=== PATIENT | male | born 1985 | race Caucasian/White ===

== ENCOUNTER 2020-07-11 12:10 | Outpatient (CLI) | payer BC, SELFPAY ==
[2020-07-11 13:06] LABS: SARS-CoV-2 Ag Negative (Negative)
[2020-07-12 18:01] LABS: SARS-CoV-2 RNA PCR Negative
== END 2020-07-11 12:11 | disposition home or self-care (01) ==
LOC: CHSLAB 12:19
PROVIDERS: PCP Family Medicine; Visit Provider Family Medicine
DX: J00 Acute nasopharyngitis [common cold] (principal); Z20.828 Contact with and (suspected) exposure to other viral communicable diseases
CPT/HCPCS: 87426; 87635; C9803; U0003

== ENCOUNTER 2021-07-19 14:15 | Outpatient (CLI) | payer BC, SELFPAY ==
[2021-07-19 15:12] LABS: SARS-CoV-2 Ag Positive (Negative)
== END 2021-07-19 14:16 | disposition home or self-care (01) ==
LOC: CHSLAB 14:17
PROVIDERS: PCP Family Medicine; Visit Provider Family Medicine
DX: U07.1 COVID-19 (principal)
CPT/HCPCS: 87426; C9803

== ENCOUNTER 2024-05-22 06:49 | Outpatient (CLI) | payer BC, SELFPAY ==
--- NOTE | ~2024-05-22 | MR_ITS ---
EXAMINATION: MR brain/brain stem wo con DATE: 05/22/2024 07:37 INDICATION: Head injury. TECHNIQUE: Magnetic resonance imaging (MRI) of the brain and brainstem was performed without intraven ous contrast. COMPARISON: None. FINDINGS: There is no intracranial hemorrhage, acute infarction, or abnormal intracranial mass lesion . The ventricles are normal in size. The orbits are normal. There is mucosal thickening in the parana john sinuses. The mastoid air cells are normal. IMPRESSION: 1. Normal brain. Reviewed, dictated and finalized at location A. INDERGARTEN TEACHER IMPRESSION: 1. Normal brain.
== END 2024-05-22 06:50 | disposition home or self-care (01) ==
PROVIDERS: PCP Family Medicine; Visit Provider Nurse Practitioner Family
DX: G44.309 Post-traumatic headache, unspecified, not intractable (principal); Z87.820 Personal history of traumatic brain injury; Z87.828 Personal history of other (healed) physical injury and trauma; F43.10 Post-traumatic stress disorder, unspecified; S06.9XAS Unspecified intracranial injury with loss of consciousness status unknown, sequela
CPT/HCPCS: 70551

== ENCOUNTER 2025-01-13 16:04 | Outpatient (RCR) | payer BC, SELFPAY ==
--- NOTE | 2025-01-19 15:59 | OPREHPOC ---
Outpatient Therapy Plan of Care This is a Multidisciplinary Plan of Care that may contain components documented by all disciplines (PT, OT, and ST.) PT Problem 1 PT Problem #1 Knowledge Deficit PT Goal 1 Goal / Goal Update Pt to be independent and compliant with HEP Target Visit 4 PT Problem 2 PT Problem #2 Impaired Functional Mobility PT Goal 1 Goal / Goal Update Pt to score 25% or less on Oswestry Pt to report being able to walk 1 mile with pain no higher than 1/10 Pt to be able to lift 30# from floor to waist with no more than 1/10 pain for work duties Target Visit 12 PT Problem 3 PT Problem #3 Impaired Strength PT Goal 1 Goal / Goal Update Pt to have 5/5 lower abdominal strength pt to have 5/5 LE strength bilat Target Visit 12
--- NOTE | 2025-01-19 15:59 | PTOPEVAL1 ---
Assessment and note entered by JT File, PT Evaluation Information Assessment Status Evaluation ICD-10 Condition Codes (PT) Pain in low back M54.50 Other ICD-10 Condition Codes ( M54.42 PT) Onset 06/13/24 Subjective Information Pt reports that he has had a stitch in his back for awhile, and had tried PT before for 6 visits before life got in the way. The pain goes to his L butt into his knee. Standing and walking is most comfortable. Pt reports that he cant walk more than 1/2 a mile or lift heavy. Pt reports that he can kneel down and squat fine. pt reports that it is starting to effect work. Pt reports that nothing makes it better. Pt reports that he has been stretching his hips some. Pt reports that he takes Tylenol for it. Pt reports that he using a heating pad on his back at night. Pt reports that the hot tub helps too. Pt reports that he can't deadlift at the gym. Reported Pain Level Pain Score 5: Self Report Assessment PT Clinical Summary Alvin is a 39 y/o male who presents to skilled PT with a diagnosis of low back pain and L sided sciatica. Pts objective and subjective is consistent with L sciatica and possibly piriformis syndrome. The pt has a goal to be able to do all his work activities without modification. Pt has deficits in LE/abdominal strength, functional performance, and pain. Pt would benefit from skilled PT to work on deficits to improve functional performance to return to prior level of functioning. Plan of Care Interventions Electrical Stimulation,Hot Pack/Cold Pack,Manual Therapy,Mechanical Traction,Neuro Re-education, Patient/Caregiver Education,Therapeutic Activities ,Therapeutic Exercise PT Services Indicated Yes Treatment Frequency and 2x a week for 12 visits Duration These treatments will address the objective and functional deficits as defined above. The patient will be advanced safely and appropriately in order for the patient to progress towards his/her prior level of function. Additional exercises will be introduced and as well as a comprehensive home exercise program upon discharge, if needed, ?to ensure carryover of functional gains achieved in the clinic. This treatment plan has been reviewed and agreement upon by the patient.
--- NOTE | 2025-01-20 07:07 | PCPTNOTE ---
On 01/19/25, the student, [Sofi Olivares], provided care and completed [facility] documentation on this patient. I have reviewed the student's documentation and agree with the findings.
--- NOTE | 2025-03-31 16:54 | PCPTNOTE ---
Mr. Pacheco attended 9 skilled PT visits addressing low back pain. He last attended therapy on 02/10/2025 and took leave to attend a trip. The patient was contacted today and he has returned from the trip and reports that his lower back is feeling good after PT and he would like to be discharged. Jennifer Lebron, LALOT
== END 2025-02-10 20:00 | disposition home or self-care (01) ==
LOC: CHSPT 16:04
PROVIDERS: PCP Nurse Practitioner Family; Visit Provider Nurse Practitioner Family
DX: M54.42 Lumbago with sciatica, left side (principal)
CPT/HCPCS: 97110; 97112; 97140; 97161; 97530

== ENCOUNTER 2025-02-01 06:59 | Outpatient (CLI) | payer BC, SELFPAY ==
--- OUTSIDE RECORDS SUMMARY | 2025-02-01 07:03 | XMS_ITS ---
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 Ripsaw Operator Name Role Phone JEFFERSON PANDA Attending Unavailable Immunization Immunization Date Status Additional Notes Code Code System DTP 1986 Completed 01 CVX DTP 10/02/1987 Completed 01 CVX DTP 12/14/1987 Completed 01 CVX DTP 11/23/1990 Completed 01 CVX OPV 1986 Completed 02 CVX OPV 10/02/1987 Completed 02 CVX OPV 11/23/1990 Completed 02 CVX MMR 11/16/1987 Completed 03 CVX MMR 11/23/1990 Completed 03 CVX Hep B, adolescent or pediatric 03/04/2000 Completed 08 CVX Td (adult), 2 Lf tetanus toxoid, preservative free, adsorbed 03/04/2000 Completed 09 CVX Hep B, adult 12/02/2013 Completed 43 CVX Tdap 12/31/2013 Completed 115 CVX Influenza, split virus, trivalent, PF 04/29/2017 Completed 140 CVX Influenza, split virus, quadrivalent, PF 04/20/2015 Completed 150 CVX Influenza, split virus, quadrivalent, PF 04/01/2016 Completed 150 CVX Influenza, split virus, quadrivalent, PF 04/21/2018 Completed 150 CVX Influenza, split virus, quadrivalent, PF 04/12/2020 Completed 150 CVX Influenza, split virus, quadrivalent, PF 06/24/2022 Completed 150 CVX Influenza, split virus, quadrivalent, PF 04/07/2023 Completed 150 CVX COVID-19, mRNA, LNP-S, PF, 1 00 mcg/0.5mL dose or 50 mcg/0.25mL dose 08/11/2020 Completed 207 CVX COVID-19, mRNA, LNP-S, PF, 1 00 mcg/0.5mL dose or 50 mcg/0.25mL dose 09/08/2020 Completed 207 CVX Results ELBOW MINIMUM 3V LEFT - Comp leted: 06/03/2023 16:12 LOINC: EXAM DESCRIPTION: ELBOW MINIMUM 3V LEFT REASON FOR STUDY: LEFT POSTERIOR ELBOW PAIN NO INJURY Duration: 1 YEAR TECHNIQUE: There are 3 radiographic view(s) of the left elbow. COMPARISON: No prior. FINDINGS: Normal mineralization. No fracture or dislocation. Joint spaces are intact. No posterior fat pad sign. IMPRESSION: No acute osseous abnormality. THIS IS AN ELECTRONICALLY VERIFIED FINAL REPORT 06/04/2023 3:00 PM - Electronically signed by Luis Jacobsen M.D. MJ: KEVIN Report ID: [id number] Reading Location: [place] [address] Social History Type Status Start Date End Date Code Code Syst em Smoking History Never smoker (Never Smoked) [id number] SNOMED CT Smoking History Unknown if ever smoked [id number] Sex Male Hospital Discharge Instructions Should you have any questions prior to discharge, please contact a member of your healthcare team. If you have left the hospital and have any questions, please contact your primary care physician. Reason For Referral No Data Found Plan of Treatment MRI UE Joint WO Contrast (36127) 2021 Split Night, CPAP/BIPAP/ASV (53136) 08/2023 Encounters Encounter Diagnosis Start Date Code Code Sys tem 06/03/2023 [id number] SNOMED-CT Personal Care Team Section Performer Name Performer Role Active Date Inactive PALOMA Freeman PCP - Primary care physician 2022-06-24 2022-07-09 Alessandro Torres PCP - Primary care physician 2022-07-09 Imaging Narrative Notes
--- OUTSIDE RECORDS SUMMARY | 2025-02-01 07:03 | XMS_ITS | Clinical Summary ---
Author Organization [facility] Address [address] [place] [address] Phone Care Team Providers Care Steam Tender Name Role Phone Unavailable Primary Care Provider Unavailabl e Social History Tobacco Use Types Packs/Day Years Used Date Smoking Tobacco: Never Assessed Sex and Gender Information Value Date Recorded Sex Assigned at Not on file Legal Sex Male 9:40 AM CDT Gender Identity Not on file Sexual Orientation Not on file Plan of Treatment Health Maintenance Due Date Last Done Comments HPV VACCINES (1 - Male 3-dose series) 2001 DTAP/TDAP/TD VACCINES (1 - Tdap) 2005 HEPATITIS B VACCINES (1 of 3 - 19+ 3-dose series) 03/2005 INFLUENZA VACCINE (#1) 2025
--- OUTSIDE RECORDS SUMMARY | 2025-02-01 07:03 | XMS_ITS | Clinical Summary ---
Author Organization [facility] Address [facility] [place] [address] Care Team Providers Care Poultry Scalder Name Role Phone Ayo Downs MD Primary Care Provider [phone] Allergies No known active allergies Medications buPROPion XL 300 MG 24 hr tablet Take 300 mg by mouth nightly at bedtime. Active prazosin 1 MG capsule Take 2 mg by mouth nightly at bedtime. Active Active Problems Problem Noted Date Diagnosed Date Aftercare following surgery 03/19/2019 Resolved Problems Problem Noted Date Diagnosed Date Resolved Date Bankart lesion of left shoul melodie, initial encounter 02/03/2019 05/21/2019 Family History Medical History Relation Comments Cancer Father None Neg Hx Relation Status Comments Father Alive Mother Alive Social History Tobacco Use Types Packs/Day Years Used Date Smoking Tobacco: Never Smokeless Tobacco: Never Alcohol Use Standard Drinks/Week Comments Yes 0 (1 standard drink = 0.6 oz pur e alcohol) occasional Sex and Gender Information Value Date Recorded Sex Assigned at Not on file Legal Sex 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 Gender Identity Not on file Sexual Orientation Not on file Last Filed Vital Signs Vital Sign Reading Time Taken Comments Blood Pressure 122/79 05/26/2021 7:00 PM AUTOMATIC SPINNING LATHE OPERATOR Pulse 79 05/26/2021 4:43 PM AUTOMATIC SPINNING LATHE OPERATOR Temperature 36.4 C (97.6 F) 05/26/2021 4:43 PM AUTOMATIC SPINNING LATHE OPERATOR Respiratory Rate 16 05/26/2021 4:43 PM AUTOMATIC SPINNING LATHE OPERATOR Oxygen Saturation 100% 05/26/2021 5:15 PM AUTOMATIC SPINNING LATHE OPERATOR Inhaled Oxygen Concentration - - Weight 88.5 kg (195 lb) 05/26/2021 5:53 PM AUTOMATIC SPINNING LATHE OPERATOR Height 177.8 cm (5' 10) 05/26/2021 4:43 PM AUTOMATIC SPINNING LATHE OPERATOR Body Mass Index 27.98 05/26/2021 4:43 PM AUTOMATIC SPINNING LATHE OPERATOR Plan of Treatment Health Maintenance Due Date Last Done Comments Annual Physical 1989 Hepatitis B Vaccines (2 of 3 - 3-dose series) 04/01/2000 03/04/2000 Hepatitis C 01/20/2004 HPV Vaccines (1 - 3-dose SCDM series) 2013 DTaP, Tdap and Td Vaccines (6 - Td or Tdap) 01/01/2024 12/31/2013, 03/04/2000, 11/23/1990, Additional history exists COVID-19 Vaccine ( season) 2024 09/08/2020, 08/11/2020 Meningococcal B Vaccine Aged Out No l onger eligible based on patient's age to complete this topic Meningococcal Vaccine Aged Out No freddie guillermina eligible based on patient's age to complete this topic Pneumococcal Vaccine: Pediatrics (0 to 5 Years) and At-Risk Patients (6 to 49 Years) Aged Out No longer eligible based on patient's age to complete this topic RSV Immunizations Under 20 Months Aged Out No longer eligible based on patient's age to complete this topic Medical Devices Implanted Type Area Passenger Car Upholsterer Apprentice Device Identifier Shelf Expiration Date Model / Serial / Lot [place] Suture 3mm 2 Suturetak Fiberwire [employer] Knotless Cruciate Ligament Biocomposite 12.7mm Sterile - [id number] Implanted:Qty: 1 on 02/05/2019 by Sean Rogers MD at [facility] Left: Shoulder [employer] 09/10/2020 [id number] / / [id number] [place] Suture 3mm 2 Suturetak Fiberwire [employer] Knotless Cruciate Ligament Biocomposite 12.7mm Sterile - [id number] Implanted:Qty: 1 on 02/05/2019 by Sean Rogers MD at [facility] Left: Shoulder [employer] 06/12/2020 [id number] / / [id number] [place] Suture 3mm 2 Suturetak Fiberwire [employer] Knotless Cruciate Ligament Biocomposite 12.7mm Sterile - [id number] Implanted:Qty: 1 on 02/05/2019 by Sean Rogers MD at [facility] Left: Shoulder [employer] 09/10/2020 AR-1938BC / / [id number] [place] Suture 3mm 2 Suturetak Fiberwire [employer] Knotless Cruciate Ligament Biocomposite 12.7mm Sterile - [id number] Implanted:Qty: 1 on 02/05/2019 by Sean Rogers MD at [facility] Left: Shoulder [employer] 09/10/2020 AR-1938BC / / [id number] [place] Suture 3mm 2 Suturetak Fiberwire [employer] Knotless Cruciate Ligament Biocomposite 12.7mm Sterile - [id number] Implanted:Qty: 1 on 02/05/2019 by Sean Rogers MD at [facility] Left: Shoulder [employer] 09/10/2020 AR-1938BC / / [id number] [place] Suture 3mm 2 Suturetak Fiberwire [employer] Knotless Cruciate Ligament Biocomposite 12.7mm Sterile - [id number] Implanted:Qty: 1 on 02/05/2019 by Sean Rogers MD at [facility] Left: Shoulder [employer] 09/10/2020 AR-1938BC / / [id number] Suture [place], [employer]ivel[employer], Biocomposite 7x19.1mm - [id number] Implanted:Qty: 1 on 02/05/2019 by Sean Rogers MD at [facility] Left: Shoulder [employer] 05/13/2020 [id number] -[id number] / / [id number] Insurance [employer] Member Subscriber Plan / Payer (Ef fective 2019-Present) Name:Alvin Pacheco Relation to Subscriber:Self Name:Alvin Pacheco Payer ID:Not on file Group ID:Not on file Type:Not on file Address: [address] Care Teams Poultry Scalder Relationship Specialty Start Date End Date Ayo Downs MD [address] [place] [address] PCP - General FAMILY PRACTICE 01/31/19
--- OUTSIDE RECORDS SUMMARY | 2025-02-01 07:04 | XMS_ITS | Encounter Summary ---
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 This section includes the names of all active insurance providers for the patient. Insurance Provider Type of Coverage Plan Name Start of Policy Coverage End of Policy Coverage Group Number Member ID Insurance Provider's Telephone Number Policy Larsen's Name Patient's Relationship to Policy Larsen AN[place] HE[place]AN W/HEALTH SAVINGS ACCOUNT AMERE N Jebbit [facility] Jul 14, [id number] [phone] MAGGY ALVIN PATIENT AN[place] HEALTH PLAN W/HEALTH SAVINGS ACCOUNT AMERE N Jebbit [facility] Jul 14, [id number] [phone] ALVIN WINTER PATIENT [place] HEALTH PLAN W/HEALTH SAVINGS ACCOUNT AMERE N Jebbit [facility] Jul 14, [id number] [phone] ALVIN WINTER [place]IENT [place]ALTH PLAN W/HEALTH SAVINGS ACCOUNT AMERE N Jebbit [facility] Jul 14, [id number] [phone] ALVIN WINTER PATIENT [place] PREFERRED PROVIDER ORGANIZAT ION (PPO) AMERE N CORPO RATIO N Jul 14, 2019 [id number] [phone] ALVIN WINTER PATIENT [employer] ([id number])RX PRESCRIPT ION AMERE N RUBINA [facility] Jul 14, 2022 [id number] [phone] ALVIN WINTER PATIENT [employer] ([id number]) PRESCRIPT ION AMERE N RUBINA Jul 14, 2019 [id number] [phone] ALVIN WINTER PATIENT Selected Encounter This section includes the information on record at [place] for the Encounter. 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 Date/Time Primary/Secondary Diagnosis Diagnosis Name Provider Source May 11, 2024 05:56 PM PRIMARY Pain in right shoulder [facility] May 11, 2024 05:56 PM SECONDARY Cervicalgia [facility] May 11, 2024 05:56 PM SECONDARY Low back pain, unspecified [facility] Plan of Treatment: Future Appointments (+ 6 months) and Future Tests (+/- 45 days) The Plan of Treatment section includes future care activities for the patient from all [place] treatmentfacilities. This section includes future appointments and future orders which are active, pending or scheduled. Future Appointments This section includes appointments that were scheduled to occur 6 months from the date of the Encounter, up to a maximum of 20 appointments. The data comes from all [place] treatment facilities. Appointment Date/Time Appointment Type Appointme nt Facility Name Aug 18, 2024 08:00 AM AMBULATORY - PSYCHIATRY [facility] Lab Results: +/- 30 days of the encounter This section includes the Chemistry and Hematology Lab Results on record with [place] for the patient. Radiology Reports and Pathology Reports are provided separately, in subsequent sections. Lab Results This section contains the Chemistry/Hematology Results that were resulted 30 days before or 30 daysafter the date of the Encounter. Date/Time Source Result Type Result - Unit Interpretation Reference Range Specimen Type Comment Apr 12, 2024 12:40 PM [facility] LIPID PANEL (STL) PLASMA Specimen Type: PLASMA Comment: No hemolysis noted. Ordering Provider: KHARI COONEY Report Released Date/Time: Apr 06, 2024 03:58 PM Reporting Lab: [address] [address] Performing Lab: [address] [address] CHOLESTEROL 208 mg/dL H 0-200 TRIGLYCERIDE 246 mg/dL H 0-150 CALCULATED LDL 106 mg/dL HDL(New) 53 mg/dL >40 Apr 12, 2024 12:40 PM [facility] COMPREHENSIVE METABOLIC PANEL PLASMA Specimen Type: PLASMA Comment: No hemolysis noted. Ordering Provider: KHARI COONEY Report Released Date/Time: Apr 06, 2024 03:58 PM Reporting Lab: [address] [address] Performing Lab: [address] [address] CREATININE 1.02 mg/dL 0.7-1.3 UREA NITROGEN 18.5 mg/dL 9.0-25.0 GLUCOSE 94 mg/dL 72-99 SODIUM 141 meq/L 136-145 POTASSIUM 4.8 meq/L 3.5-5 CHLORIDE 105 meq/L 98-107 CARBON DIOXIDE 26 meq/L 22-31 CALCIUM 9.6 mg/dL 8.4-10.4 PROTEIN 7.5 g/dL 6-8.6 ALBUMIN 4.5 g/dL 3.4-5 TOTAL BILIRUBIN 0.4 mg/dL 0.2-1.2 ALKALINE PHOSPHATASE 79 U/L 40-150 AST/SGOT 17 U/L 5-34 ALT/SGPT 14 U/L 8-40 EGFR (CKD-EPI 2020) 96.5 >60 Apr 12, 2024 12:40 PM [facility] HGA1C BLOOD Specimen Type: BLOOD No comment entered. Ordering Provider: KHARI COONEY Report Released Date/Time: Apr 06, 2024 03:58 PM Reporting Lab: [address] [address] Performing Lab: [facility] [address] [address] HGA1C 5.3 4.0-6.0 Apr 12, 2024 12:40 PM [facility] CBC BLOOD Specimen Type: BLOOD No comment entered. Ordering Provider: KHARI COONEY Report Released Date/Time: Apr 06, 2024 03:58 PM Reporting Lab: [facility] [address] [address] Performing Lab: [facility] [address] [address] WBC 8.2 10*3/uL 3.6-11.2 RBC 4.76 10*6/uL 4.10-5.70 HGB 14.9 g/dL 13.1-16.8 HCT 43.6 38.2-48.4 MCV 91.6 fL 80.0-100.0 MCH 31.3 pg 27.0-34.0 MCHC 34.2 g/dL 33.0-36.0 PLT 263 10*3/uL 150-400 MPV 10.6 fL 7.5-11.2 RDW 12.3 11.8-15.1 LYMPHOCYTES, AUTO % 41 MONOCYTES, AUTO % 7 NEUTROPHILS, AUTO % 47 EOSINOPHILS, AUTO % 4 BASOPHILS, AUTO % 1 LYMPHOCYTES, ABSOLUTE 3.32 10*3/uL 0.77- 4.50 MONOCYTES, ABSOLUTE 0.58 10*3/uL 0.19-0. 80 NEUTROPHILS, ABSOLUTE 3.82 10*3/uL 2.10- 8.00 EOSINOPHILS, ABSOLUTE 0.36 10*3/uL 0.00- 0.60 BASOPHILS, ABSOLUTE 0.05 10*3/uL 0.00-0. 20 Apr 12, 2024 12:40 PM [facility] VITAMIN D, 25-HYDROXY SERUM Specime n Type: SERUM No comment entered. Ordering Provider: KHARI COONEY Report Released Date/Time: Apr 06, 2024 03:58 PM Reporting Lab: [facility] [address] [address] Performing Lab: [facility] [address] [address] VITAMIN D, 25-HYDROXY 42.6 ng/mL 30-96 Apr 12, 2024 12:40 PM [facility] TSH W/ REFLEX FT4 (STL) PLASMA Speci men Type: PLASMA No comment entered. Ordering Provider: KHARI COONEY Report Released Date/Time: Apr 06, 2024 03:58 PM Reporting Lab: [facility] [address] [address] Performing Lab: [facility] [address] [address] TSH 1.183 u[IU]/mL 0.47-5 Social History: Smoking Status (Most current) and Tobacco Use (All prior to encounter date) This section includes the most current, and the historical, smoking and tobacco- related health factors from the [place] facility where the Encounter took place. Current Smoking Status This section includes the most current smoking, or tobacco-related health factor, from the [place] facility where the Encounter took place. Date/Time Current Smoking Status Comment Facil ity Apr 06, 2024 02:30 PM VA-TOBACCO NEVER USED [facility] Tobacco Use History This section includes a history of the smoking, or tobacco-related health factors, that were collected on or before the date of the Encounter. The data comes from the [place] facility where the Encounter took place. Date/Time Smoking Status/Tobacco Use Comment F acility Apr 07, 2023 01:30 PM VA-TOBACCO FORMER USER [facility] Apr 07, 2023 01:30 PM VA-TOBACCO QUIT 1 TO < 5 YRS [facility] Apr 06, 2021 09:00 AM VA-TOBACCO FORMER USER [facility] Apr 06, 2021 09:00 AM VA-TOBACCO QUIT 1 TO < 5 YRS [facility] Apr 07, 2020 02:30 PM VA-TOBACCO NEVER USED [facility] Radiology Reports: +/- 30 days of the encounter Radiology Reports For cases when an order for radiology services may have been completed prior to the date of the Encounter, the report list includes the Radiology Reports that were completed up to 30 days before dateof the Encounter. For cases when an order for radiology services may have been completed after the date of the Encounter, the report list also includes the Radiology Reports that were completed up to30 days after date of the Encounter. The data comes from all [place] treatment facilities. Date/Time Radiology Report Provider Source Apr 12, 2024 12:31 PM SPINE LUMBOSACRAL 2 OR 3 VIEWS: ALVIN WINTER [id number] -[phone] M Exm Date: APR 12, 2024@12:31 Req Phys: KHARI COONEY Loc: [facility] PACT 5 (Req'g Loc) Img Loc: [facility] SUITE Service: [facility], [address] [place] [address] (Case [id number] COMPLETE) SPINE LUMBOSACRAL 2 OR 3 VIEWS (RAD Detailed) CPT:57947 Reason for Study: Low back pain Clinical History: Report Status: Verified Date Reported: APR 12, 2024 Date Verified: APR 12, 2024 Beef Breaker E-Sig:/ES/George Witt MD Report: FINDINGS: No significant abnormalities demonstrated in lumbar spine. Disc spaces appeared preserved throughout and vertebral alignment is satisfactory. Vertebral bodies appear intact. Sacroiliac joints and visualized renal areas appear unremarkable. No other significant finding is seen. Impression: Negative. Primary Interpreting Staff: George Witt MD, Radiologist (Beef Breaker) /QMB [facility] Encounter Notes: All associated encounter notes This section contains the clinical notes associated to the Encounter. Date/Time Encounter Note(s) Provider Source May 11, 2024 01:44 PM [facility]: LOCAL TITLE: [place] ACUPUNCTURE NOTE STANDARD TITLE: [facility] DATE OF NOTE: MAY 11, 2024@13:44 ENTRY DATE: MAY 11, 2024@13:45:01 AUTHOR: SUKHI PARHAM EXP COSIGNER: URGENCY: STATUS: COMPLETED Initial visit Overly Acupuncture/Overly Acupressure was the only treatment given. Patient was evaluated and agreed to receive Overly Acupuncture (BFA). Patient was evaluated and agreed to receive [place] Acupuncture Protocol (BFA)/Overly Acupressure (BAA) for the following pain condition(s): Comment: low back Pre BFA/BAA Numeric Pain Rating Scale of site with highest pain: number from 0-10: 2 The patient was asked the following questions: During the past 24 hours, how much has your pain interfered with your usual activity? number from 0-10: 6 During the past 24 hours, how much has your pain interfered with your usual sleep? number from 0-10: 7 During the past 24 hours, how much has the pain affected your usual mood? number from 0-10: 4 During the past 24 hours, how much has pain contributed to your stress? number from 0-10: 2 Oral Informed Consent obtained for BFA/BAA Procedure: Ear was prepped with alcohol Needle type: Semi-permanent ASP needles The following points were placed: All 10 points in both ears Complications: Patient tolerated well, without any complications. Post treatment Numeric Pain Rating Scale: number from 0-10: 1 Standard [id number] time for application of BFA/BAA protocol is 15 minutes. No electrical stimulation is used. [id number] time spent during this procedure in the delivery of BFA/BAA was 15 minutes. The patient was provided with the following post BFA instructions: -Continue normal activities and avoid over exertion for the initial 6-12 hours after a treatment. Avoid alcohol for 12 hours after treatment. -You may bathe or shower with the needles in place, but be careful not to pull the needles when cleaning or drying the ear. -If you experience new or continued redness, swelling or pain, remove the needles or return to clinic for evaluation and/or needle removal. -You may experience drowsiness, lightheadedness, or euphoria during the treatment or within 30 minutes of treatment. -Do not have an MRI scan with the needles in place (If you need to have an MRI, please remove needles prior to scan). -Continue to take all prescription medication according to your provider's instructions. -After three days, remove all needles. You may have small stud needles (ASP needles) covered by an adhesive bandage, or needles that are attached to the adhesive bandage (press tack needles). ASP needles may be removed by gripping them with your fingernails or tweezers. Rock the needles back and forth to remove. Press tack needles may be removed by peeling off the tape that holds the needle in place. -Colden must be placed in a sharps container or household container that meets sharps disposal guidelines. Household container must be: a. made of a puncture-resistant material; b. able to close with a tight-fitting, puncture resistant lid, without sharps being able to come out; c. stand upright and be stable during use; d. leak-resistant; e. properly labeled (sharps - biohazard); and f. disposed of according to community guidelines, if available. -Please keep all regularly scheduled follow-up visits. Return sooner should your condition worsen. Future visit dates/details: 05/18/24 /sherwin/ Sukhi Parham D.C. Chiropractic Physician-Fee Basis Signed: 05/11/2024 17:56 SUKHI PARHAM [facility] May 11, 2024 01:06 PM CHIROPRACTIC NOTE: LOCAL TITLE: CHIROPRACTIC [facility] F/[facility] STANDARD TITLE: CHIROPRACTIC NOTE DATE OF NOTE: MAY 11, 2024@13:06 ENTRY DATE: MAY 11, 2024@13:06:11 AUTHOR: SUKHI PARHAM EXP COSIGNER: URGENCY: STATUS: COMPLETED VISIT #2 SUBJECTIVE: Alvin stated he has a real pinching feeling in the lower back and a shooting pain in the left buttock. He is doing the stretches at home. They make him feel looser overall. He did OK after his treatment last week. He felt better more limber after his treatment even though the pain was still there. OBJECTIVE: MOVEMENT/POSTURE: The [facility] ambulates without difficulty or the need for assistance. SEGMENTAL DYSFUNCTION: Joint dysfunction was noted in the cervical, thoracic, lumbar/ SI spinal region. PALPATION: Tight and tender muscles of the paraspinal musculature in the lumbar, thoracic and cervical region. CERVICAL ACTIVE RANGE OF MOTION: flexion about 10 degrees with tightness, extension 40 degrees and painful in the neck, right lateral bending 20 degrees and pain in the cervical region and tight on the left, left lateral bending 15 degrees and pain in the neck and tight on the right, rotation about 50 degrees to the right pain in the neck, left rotation about 50 degrees and not as painful as rotation to the right. LUMBAR ACTIVE RANGE OF MOTION: flexion 10 degrees with moderate pain in the central lumbosacral region and left buttock and radiating to the left hip, extension at 10 degrees resulted in moderate pain in the central lumbosacral region, left buttock and left hip anteriorly, left lateral bending 15 degrees and a pinch in the lower back, right lateral bending at 20 degrees and pain in the lumbosacral region. Straight leg Raise was positive on the left at 60 degrees. Pain was produced in the left hip region. ASSESSMENT: It is my opinion he will respond to Chiropractic treatments to some degree. There cervical, thoracic, lumbar and sacroiliac joint demonstrated segmental dysfunction at various levels. The progress may be complicated by the chronic nature of his neck and back issues. PLAN: The patient was given a review of findings following the exam. The benefits, risks and alternatives to inspector health care facilities were discussed with the patient, along with an opportunity to ask questions. Patient then gave an informed consent to treatment. Plan of care will consist of 4-6 visits consisting of chiropractic manipulation with an incremental increase in home exercise depending on the patients response. The patient agrees to this plan. Treatment consisted of using the Hyperice massage instrument to help relax the paraspinal musculature in the posterior shoulders, thoracic and lumbar spine regions. I used it on hips bilaterally. He said it felt good. I adjusted him using the IQ adjusting instrument on the cervical, thoracic, lumbar and sacral spine. He felt a little better so I manually adjusted his lower back on the side, I did an anterior to posterior thoracic adjustment and supine cervical adjustment. I contacted the right Serratus Anterior and lifted his right arm upwards and across the front of his body to help inscrease flexibility and ROM. I repeated this on the left. Manual therapy was performed stretching the cervical spine by rotating his head to the right and gently move his head toward his chest. I repeated this on the left. While he was on his side, I gently pulled his lower body forward while applying a gentle pressure posteriorly on the upper body. I repeated it on the opposite side. He said this helped. I did BFA acupuncture on both ears all 5 points using the ASP gold needles. He tolerated it well. I went over the BFA information sheet with the [facility]. He will need to remove them in 3 days. he felt about the same after they were in. BFA 15 minutes Therapeutic exercise for the neck and upper back place the right hand behind the back, rotate the head to the left, flex the chin to the chest and apply overpressure to the top of the head with the left hand. repeated on the left side. went over 5 reps 20 second hold. The patient reported his neck and back felt looser. The lower back was still sore. HOME CARE: for the neck and upper back place the right hand behind the back, rotate the head to the left, flex the chin to the chest and apply overpressure to the top of the head with the left hand. repeated on the left side. went over 5 reps 20 second hold. Knee to chest and glute stretches to help increase flexibility and ROM of the lower back and hips. 5 reps daily 20 second hold. stop if they cause pain. sit with feet flat on the floor. I told him to place a pillow under his knees if he is lying on his back. Place a pillow in between his knees if lying on the side. Do not lie on the stomach. Ice if sore. /sherwin/ Sukhi Parham D.C. Chiropractic Physician-Fee Basis Signed: 05/11/2024 17:56 SUKHI PARHAM [facility]
--- OUTSIDE RECORDS SUMMARY | 2025-02-01 07:04 | XMS_ITS | Encounter Summary ---
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 Name Role Phone KHARI COONEY Primary Care Provider [facility] Insurance Providers: All historical and current [...] HEALTH PLAN W/HEALTH SAVINGS ACCOUNT AMERE N [place] [facility] Jul 14, [id number] [phone] ALVIN WINTER PATIENT ANTHE[place] [employer]EDU[place]IB[place] HEALTH PLAN W/HEALTH SAVINGS ACCOUNT AMERE N [place] [facility] Jul 14, [id number] [phone] MAGGY ALVIN PATIENT [place] HEALTH PLAN W/HEALTH SAVINGS ACCOUNT AMERE N [place] [facility] Jul 14, [id number] ALVIN WINTER PATIENT [place] HEALTH PLAN W/HEALTH SAVINGS ACCOUNT AMERE N [place] [facility] Jul 14, [id number] [phone] ALVIN WINTER PATIENT [place] PREFERRED PROVIDER ORGANIZAT ION (PPO) AMERE N [place] N Jul 14, 2019 [id number] ALVIN WINTER PATIENT [employer] ([id number])RX PRESCRIPT ION AMERE N RUB[place] [facility] Jul 14, 2022 [id number] [phone] ALVIN WINTER PATIENT [employer] ([id number]) PRESCRIPT ION AMERE N [place] Jul 14, 2019 [id number] ALVIN WINTER PATIENT Selected Encounter This section includes the information on record at OR for the Encounter. 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 Date/Time Primary/Secondary Diagnosis Diagnosis Name Provider Source Oct 28, 2024 06:30 AM PRIMARY Low back pain, unspecified PARHAM,SUKHI [facility] Oct 28, 2024 06:30 AM SECONDARY [facility] Oct 28, 2024 06:30 AM SECONDARY Pain in thoracic spine [facility] Oct 28, 2024 06:30 AM SECONDARY Radiculopathy, lumbosacral region [facility] Plan of Treatment: Future Appointments (+ 6 months) and Future Tests (+/- 45 days) The Plan of Treatment section includes future care activities for the patient from all OR treatmentfacilities. This section includes future appointments and future orders which are active, pending or scheduled. Future Appointments This section includes appointments that were scheduled to occur 6 months from the date of the Encounter, up to a maximum of 20 appointments. The data comes from all OR treatment facilities. Appointment Date/Time Appointment Type Appointme nt Facility Name May 11, 2024 01:00 PM AMBULATORY - NONE [facility] May 11, 2024 02:00 PM AMBULATORY - MEDICINE [facility] Aug 18, 2024 08:00 AM AMBULATORY - PSYCHIATRY [facility] Lab Results: +/- 30 days of the encounter This section includes the Chemistry and Hematology Lab Results on record with OR for the patient. Radiology Reports and Pathology Reports are provided separately, in subsequent sections. Lab Results This section contains the Chemistry/Hematology Results that were resulted 30 days before or 30 daysafter the date of the Encounter. Date/Time Source Result Type Result - Unit Interpretation Reference Range Specimen Type Comment Apr 12, 2024 12:40 PM [facility] LIPID PANEL (STL) PLASMA Specimen Type: PLASMA Comment: No hemolysis noted. Ordering Provider: KHARI COONEY Report Released Date/Time: Apr 06, 2024 03:58 PM Reporting Lab: [address] [address] Performing Lab: [address] [address] CHOLESTEROL 208 mg/dL H 0-200 TRIGLYCERIDE 246 mg/dL H 0-150 CALCULATED LDL 106 mg/dL HDL(New) 53 mg/dL >40 Apr 12, 2024 12:40 PM [facility] COMPREHENSIVE METABOLIC PANEL PLASMA Specimen Type: PLASMA Comment: No hemolysis noted. Ordering Provider: KHARI COONEY Report Released Date/Time: Apr 06, 2024 03:58 PM Reporting Lab: [address] [address] Performing Lab: [address] [address] CREATININE 1.02 mg/dL 0.7-1.3 UREA NITROGEN 18.5 [...] 96.5 >60 Apr 12, 2024 12:40 PM [facility] HGA1C BLOOD Specimen Type: BLOOD No comment entered. Ordering Provider: KHARI COONEY Report Released Date/Time: Apr 06, 2024 03:58 PM Reporting Lab: [facility] [address] [place] [phone] Performing Lab: [address] [address] HGA1C 5.3 4.0-6.0 Apr 12, 2024 12:40 PM [facility] CBC BLOOD Specimen Type: BLOOD No comment entered. Ordering Provider: KHARI COONEY Report Released Date/Time: Apr 06, 2024 03:58 PM Reporting Lab: [address] [address] Performing Lab: [address] [address] WBC 8.2 10*3/uL 3.6-11.2 RBC 4.76 10*6/uL [...] 0.00-0. 20 Apr 12, 2024 12:40 PM [facility] VITAMIN D, 25-HYDROXY SERUM Specime n Type: SERUM No comment entered. Ordering Provider: KHARI COONEY Report Released Date/Time: Apr 06, 2024 03:58 PM Reporting Lab: [facility] [address] [facility] [address] Performing Lab: [facility] [address] [facility] [address] VITAMIN D, 25-HYDROXY 42.6 ng/mL 30-96 Apr 12, 2024 12:40 PM [facility] TSH W/ REFLEX FT4 (STL) PLASMA Speci men Type: PLASMA No comment entered. Ordering Provider: KHARI COONEY Report Released Date/Time: Apr 06, 2024 03:58 PM Reporting Lab: [facility] [address] [facility] [address] Performing Lab: [facility] [address] [facility] [address] TSH 1.183 u[IU]/mL 0.47-5 Social History: Smoking Status (Most current) and Tobacco Use (All prior to encounter date) This section includes the most current, and the historical, smoking and tobacco- related health factors from the OR facility where the Encounter took place. Current Smoking Status This section includes the most current smoking, or tobacco-related health factor, from the OR facility where the Encounter took place. Date/Time Current Smoking Status Comment Celia [email or web address] Apr 06, 2024 02:30 PM VA-TOBACCO NEVER USED [facility] Tobacco Use History This section includes a history of the smoking, or tobacco-related health factors, that were collected on or before the date of the Encounter. The data comes from the OR facility where the Encounter took place. Date/Time Smoking Status/Tobacco Use Comment F acility Apr 07, 2023 01:30 PM VA-TOBACCO FORMER USER [facility] Apr 07, 2023 01:30 PM VA-TOBACCO QUIT 1 TO < 5 YRS [facility] Apr 06, 2021 09:00 AM VA-TOBACCO FORMER USER [facility] Apr 06, 2021 09:00 AM VA-TOBACCO QUIT 1 TO < 5 YRS [facility] Apr 07, 2020 02:30 PM VA-TOBACCO NEVER USED [facility] Radiology Reports: +/- 30 days of the [...] the Encounter. The data comes from all OR treatment facilities. Date/Time Radiology Report Provider Source Apr 12, 2024 12:31 PM SPINE LUMBOSACRAL 2 OR 3 VIEWS: ALVIN WINTER [id number] -[id number] M Exm Date: APR 12, 2024@12:31 Req Phys: KHARI COONEY [facility]Req[facility]) Img Loc: [facility] SUITE Service: [address] [address] (Case [id number] COMPLETE) SPINE LUMBOSACRAL 2 OR 3 VIEWS (RAD Detailed) CPT:09212 Reason for Study: Low back pain Clinical History: Report Status: Verified Date Reported: APR 12, 2024 Date Verified: APR 12, 2024 Coding And Reimbursement Specialist E-Sig:/ES/George Witt MD Report: FINDINGS: No significant abnormalities demonstrated in lumbar spine. Disc spaces appeared preserved throughout and vertebral alignment is satisfactory. Vertebral bodies appear intact. Sacroiliac joints and visualized renal areas appear unremarkable. No other significant finding is seen. Impression: Negative. Primary Interpreting Staff: George Witt MD, Radiologist (Coding And Reimbursement Specialist) /QMB [facility] Encounter Notes: All associated encounter notes This section contains the clinical notes associated to the Encounter. Date/Time Encounter Note(s) Provider Source May 06, 2024 02:47 PM CONSULT: LOCAL TITLE: [facility] CONSULT [facility] STANDARD TITLE: CONSULT DATE OF NOTE: MAY 06, 2024@14:47 ENTRY DATE: MAY 06, 2024@14:47:55 AUTHOR: SUKHI PARHAM EXP COSIGNER: URGENCY: STATUS: COMPLETED REQUESTING PROVIDER: KHARI COONEY Please note that this dictation was completed with computer voice recognition software, often unanticipated grammatical, syntax and other interpretive errors are inadvertently transcribed by the computer software. Please disregard these errors. Thank you for your referral, as you know this is a 39 year old WHITE NOT OR MALE presenting to the Chiropractic clinic on 05/06/24 14:00 with a chief complaint of lower back pain radiating into the tail bone. This has been going on since the Summer. Sitting is difficult. If he is carrying anything, this will cause pain to radiate to the side of the left thigh to the knee and then goes to the bottom of the left foot if he sits too long. Standing helps relieve his pain. His neck bothers him. He had a dislocated shoulder years ago. He has had surgery on both of his shoulders over the years. Right shoulder was service related. He gets headaches a lot. He can have a bad one 1x a week. They are in the background daily. His right hand/ fingers are numb daily all of the time. RED FLAGS: [-] Recent unexplained weight loss [-] History of Cancer [-] Recent fever/chills [-] Chest Pain/SOB [-] Abdominal Pains [-] Bowel/Bladder Dysfunction [-] New Severe Headache [-] Dizziness [-] History of Stroke PAST HISTORY: Surgery/Facet or Epidural In: Alvin stated his right and left shoulder were repaired. The left knee was repaired. Past DC/PT/TENS: He has been treated by a Chiropractor in the past but not in the [facility] He has done P.T. through the [facility] for his shoulder. He has a TENS unit. SIGNIFICANT INJURY OR ILLNESS: none noted SOCIAL HISTORY/EMPLOYMENT: He was in the [employer]. 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 [facility] REGISTERED NURSE: TOBACCO: Denies ETOH: Denies ILLICITS: Denies Service Connected: Yes (90%) DS - Disabilities Eligibility: SERVICE CONNECTED 50% to 100% VERIFIED Total S/C %: 90 TENDON INFLAMMATION 10% S/C TINNITUS 10% S/C SLEEP APNEA SYNDROMES 50% S/C MIGRAINE HEADACHES 30% S/C POST-TRAUMATIC STRESS DISORDER 30% S/C SUPERFICIAL SCARS 10% S/C ECZEMA 0% S/C LIMITED MOTION OF ARM 30% S/C LOSS OF FIELD OF VISION 10% S/C 2ND DEGREE MAKI 0% S/C REFERRAL DATE: 04/06/24 EXAM DATE(S): 05/06/24 14:00 INITIAL TREATMENT DATE: 05/06/24 14:00 TYPE OF CARE: active DISCHARGE DATE: ALERTS: EXAMINATION APPEARANCE, MOOD & ORIENTATION The patient is a 39 year old WHITE NOT OR MALE, who is alert and oriented to person, place, and time. The patient is in no apparent distress and is well developed and well nourished. Patient has been walking with a limp since the Summer. OBJECTIVE/PALPATION: Moderate muscle spasms and trigger points in the posterior cervical musculature, trapezius/ rhomboids and paraspinal musculature in the lumbar spine and gluteal musculature. CERVICAL RANGE OF MOTION: Flexion 15 degrees pain on the left cervical spine, Extension 40 degrees on the left, Lateral bending on the left 15 degrees produced pain on the left, lateral bending to the right around 20 degrees was more stretching. Rotation to the left about 45 degrees produced pain left cervical, rotation to the right about 50 degrees produced stretching. THORACOLUMBAR RANGE OF MOTION : Flexion 60 degrees caused pain in the lumbosacral spine, buttock, left hip and left thigh. Extension 10 degrees produced pain in the center lumbosacral region. Rotation to the left about 10 degrees produced pain left buttock/tailbone, left hip, left thigh. Right Rotation about 15 degrees produced pain in the lower back and buttocks. NEUROLOGICAL EXAM: Biceps 1/2, brachioradialis 1/2, Triceps absent, Patellar + 2/2, Achilles +2/2. ORTHOPEDIC EXAM: Pressure applied to the top of his head produced pain in the lumbar spine, pressure applied to the top of his head turned to the right produced pain on the left, pressure applied to the top of his head while turned to the left produced pain in the left cervical spine. Maximal Foraminal Compression produced pain bilaterally in the cervical spine. Distraction of the cervical spine decreased the cervical spine pain. Seated Bechterew's produced a pinch in the lower back with both legs extended at the same time. Straight leg Raising produced pain in the left buttock with the left leg raised to about 60 degrees. I then lowered the left leg about 10 degrees when no pain was noted and dorsiflexed the foot. This produced pain in the lower back. Heel to buttock produced pain in the lower back bilaterally. REVIEW OF DIAGNOSTIC IMAGING: SPINE LUMBOSACRAL 2 OR 3 VIEWS Reason for Study: Low back pain Report Status: Verified Apr 12, 2024 Report: FINDINGS: No significant abnormalities demonstrated in lumbar spine. Disc spaces appeared preserved throughout and vertebral alignment is satisfactory. Vertebral bodies appear intact. Sacroiliac joints and visualized renal areas appear unremarkable. No other significant finding is seen. Impression: Negative. ASSESSMENT: It is my opinion he will respond to Chiropractic treatments to some degree. There cervical, thoracic, lumbar and sacroiliac joint demonstrated segmental dysfunction at various levels. The progress may be complicated by the chronic nature of his neck and back issues. PLAN: The patient was given a review of findings following the exam. The benefits, risks and alternatives to care information associate were discussed with the patient, along with an opportunity to ask questions. Patient then gave an informed consent to treatment. Plan of care will consist of 4-6 visits consisting of chiropractic manipulation with an incremental increase in home exercise depending on the patients response. The patient agrees to this plan. Treatment consisted of manual flexion of the lumbosacral spine. It was painful on the first try so I stopped. I used the Hyperice massage instrument to help relax the paraspinal musculature in the posterior shoulders, thoracic and lumbar spine regions. I used it on hips bilaterally. He said it felt good. I adjusted him using the IQ adjusting instrument on the cervical, thoracic, lumbar and sacral spine. I manually adjusted his lower back on the side, I did an anterior to posterior thoracic adjustment and supine cervical adjustment. Manual therapy was performed stretching the cervical spine by rotating his head to the right and gently move his head toward his chest. I repeated this on the left. While he was on his side, I gently pulled his lower body forward while applying a gently pressure posteriorly on the upper body. I repeated it on the opposite side. The said this was good. Patient was instructed in how to do knee to chest and glute stretches to help increase flexibility and ROM of the lower back and hips. 5 reps daily 20 second hold. Stop if they cause pain. We will go over hamstring stretches once straight leg raising does not produce any pain. I spoke with him about BFA Acupuncture. He is interested in trying this on his next visit. The patient reported his neck felt much better following his treatment. The lower back felt good post adjustment. HOME CARE: Knee to chest and glute stretches to help increase flexibility and ROM of the lower back and hips. 5 reps daily 20 second hold. stop if they cause pain. sit with feet flat on the floor. He generally sleeps on his back. I told him to place a pillow under his knees if he is lying on his back. Place a pillow in between his knees if lying on the side. Do not lie on the stomach. Ice if sore. RTC: I would like to treat him two times next week. I scheduled him for Friday first. /sherwin/ Sukhi Parham D.C. Chiropractic Physician-Fee Basis Signed: 05/06/2024 16:37 SUKHI PARHAM [facility]
--- OUTSIDE RECORDS SUMMARY | 2025-02-01 07:04 | XMS_ITS | Encounter Summary ---
Author Name [facility] [place] [facility] [place] [place] [facility] [place] Address [address] [place] [address] Care Team Providers Care Career Law Clerk Name Role Phone KHARI COONEY Primary Care [...] HEALTH PLAN W/HEALTH SAVINGS ACCOUNT AMERE N [facility] Jul 14, [id number] QJ2 [id number] [phone] MAGGY SCOTT PATIENT ANTHE[place] E HEALTH PLAN W/HEALTH SAVINGS ACCOUNT AMERE N [place] [facility] Jul 14, [id number] QJ2 [id number] [phone] WINTERANOOPEN PATIENT [place] HEALTH PLAN W/HEALTH SAVINGS ACCOUNT AMERE N [place] [facility] Jul 14, [id number] QJ2 [phone] SCOTT WINTER [place] HEALTH PLAN W/HEALTH SAVINGS ACCOUNT AMERE N [place] [facility] Jul 14, [id number] QJ2 [id number] [phone] SCOTT WINTER PATIENT [place] PREFERRED PROVIDER ORGANIZAT ION (PPO) AMERE N CORPO RATIO N Jul 14, 2019 [id number] SCOTT WINTER PATIENT [employer] ([id number])RX PRESCRIPT ION AMERE N [facility] Jul 14, 2022 RX22AP [id number] [phone] SOCTT WINTER PATIENT [employer] ([id number]) PRESCRIPT ION AMERE N [place] Jul 14, 2019 [id number] SCOTT WINTER PATIENT Selected Encounter This section includes the information on record at [place] for the Encounter. Date/Time Encounter Type Encounter Description Reason Provider Source May 11, 2024 02:00 PM PSYTX W PT 30 MINUTES PCMHI INDIV ICD-10-CM F43.10 Post-traumatic stress disorder, unspecified [facility] Encounter Template Text not used by [place] Assessments - Encounter Diagnoses This section includes the primary and secondary diagnoses documented for the Encounter. Date/Time Primary/Secondary Diagnosis Diagnosis Name Provider Source May 11, 2024 02:59 PM PRIMARY Post-traumatic stress disorder, unspecified KI DURHAM [facility] Plan of Treatment: Future Appointments (+ 6 months) and Future Tests (+/- 45 days) The Plan of Treatment section includes future care activities for the patient from all [place] treatmentfacilities. This section includes future appointments and future orders which are active, pending or scheduled. Future Appointments This section includes appointments that were scheduled to occur 6 months from the date of the Encounter, up to a maximum of 20 appointments. The data comes from all [place] treatment facilities. Appointment Date/Time Appointment Type Appointme nt Facility Name Aug 18, 2024 08:00 AM AMBULATORY - [facility]IATRY [facility] Lab Results: +/- 30 days of the encounter This section includes the Chemistry and Hematology Lab Results on record with [place] for the patient. Radiology Reports and Pathology Reports are provided separately, in subsequent sections. Lab Results This section contains the Chemistry/Hematology Results that were resulted 30 days before or 30 daysafter the date of the Encounter. Date/Time Source Result Type Result - Unit Interpretation Reference Range Specimen Type Comment Apr 12, 2024 12:40 PM [facility] LIPID PANEL (STL) PLASMA Specimen Type: PLASMA Comment: No hemolysis noted. Ordering Provider: KHARI COONEY Report Released Date/Time: Apr 06, 2024 03:58 PM Reporting Lab: [facility] [address] [place] [phone] Performing Lab: [facility] [address] [place] [phone] CHOLESTEROL 208 mg/dL H 0-200 TRIGLYCERIDE 246 mg/dL H 0-150 CALCULATED LDL 106 mg/dL HDL(New) 53 mg/dL >40 Apr 12, 2024 12:40 PM [facility] COMPREHENSIVE METABOLIC PANEL PLASMA Specimen Type: PLASMA Comment: No hemolysis noted. Ordering Provider: KHARI COONEY Report Released Date/Time: Apr 06, 2024 03:58 PM Reporting Lab: [address] [phone] Performing Lab: [address] [phone] CREATININE 1.02 mg/dL 0.7-1.3 UREA NITROGEN 18.5 [...] 96.5 >60 Apr 12, 2024 12:40 PM [facility] HGA1C BLOOD Specimen Type: BLOOD No comment entered. Ordering Provider: KHARI COONEY Report Released Date/Time: Apr 06, 2024 03:58 PM Reporting Lab: [facility] [address] [place] [phone] Performing Lab: [address] [address] HGA1C 5.3 4.0-6.0 Apr 12, 2024 12:40 PM [facility] CBC BLOOD Specimen Type: BLOOD No comment entered. Ordering Provider: KHARI COONEY Report Released Date/Time: Apr 06, 2024 03:58 PM Reporting Lab: [facility] [address] [place] [address] Performing Lab: [facility] [address] [facility] [address] WBC 8.2 10*3/uL 3.6-11.2 RBC 4.76 10*6/uL [...] 0.00-0. 20 Apr 12, 2024 12:40 PM [facility] VITAMIN D, 25-HYDROXY SERUM Specime n Type: SERUM No comment entered. Ordering Provider: KHARI COONEY Report Released Date/Time: Apr 06, 2024 03:58 PM Reporting Lab: [facility] [address] [facility] [address] Performing Lab: [facility] [address] [facility] [place] [address] VITAMIN D, 25-HYDROXY 42.6 ng/mL 30-96 Apr 12, 2024 12:40 PM [facility] TSH W/ REFLEX FT4 (STL) PLASMA Speci men Type: PLASMA No comment entered. Ordering Provider: KHARI COONEY Report Released Date/Time: Apr 06, 2024 03:58 PM Reporting Lab: [facility] [address] [facility] [address] Performing Lab: [facility] [address] [facility] [address] TSH 1.183 u[IU]/mL 0.47-5 Social History: Smoking Status (Most current) and Tobacco Use (All prior to encounter date) This section includes the most current, and the historical, smoking and tobacco- related health factors from the [place] facility where the Encounter took place. Current Smoking Status This section includes the most current smoking, or tobacco-related health factor, from the [place] facility where the Encounter took place. Date/Time Current Smoking Status Comment Facil ity Apr 06, 2024 02:30 PM [facility]ACCO [facility] USED [facility] Tobacco Use History This section includes a history of the smoking, or tobacco-related health factors, that were collected on or before the date of the Encounter. The data comes from the [place] facility where the Encounter took place. Date/Time Smoking Status/Tobacco Use Comment F acility Apr 07, 2023 01:30 PM VA-TOBACCO FORMER USER [facility] Apr 07, 2023 01:30 PM VA-TOBACCO QUIT 1 TO < 5 YRS [facility] Apr 06, 2021 09:00 AM VA-TOBACCO FORMER USER [facility] Apr 06, 2021 09:00 AM VA-TOBACCO QUIT 1 TO < 5 YRS [facility] Apr 07, 2020 02:30 PM VA-TOBACCO NEVER USED [facility] Radiology Reports: +/- 30 days of the [...] the Encounter. The data comes from all [place] treatment facilities. Date/Time Radiology Report Provider Source Apr 12, 2024 12:31 PM SPINE LUMBOSACRAL 2 OR 3 VIEWS: SCOTT WINTER [id number] -1985 M Exm Date: APR 12, 2024@12:31 Req Phys: KHARI COONEY Alison Loc: [facility] PACT 5 (Req'g Loc) Img Loc: -MAIN RADIOLOGY SUITE Service: Unknown [facility], [address] [place] [address] (Case [id number] COMPLETE) SPINE LUMBOSACRAL 2 OR 3 VIEWS (RAD Detailed) CPT:06035 Reason for Study: Low back pain Clinical History: Report Status: Verified Date Reported: APR 12, 2024 Date Verified: APR 12, 2024 Professor Of Biological Sciences E-Sig:/ES/Kyleigh Witt MD Report: FINDINGS: No significant abnormalities demonstrated in lumbar spine. Disc spaces appeared preserved throughout and vertebral alignment is satisfactory. Vertebral bodies appear intact. Sacroiliac joints and visualized renal areas appear unremarkable. No other significant finding is seen. Impression: Negative. Primary Interpreting Staff: Kyleigh Witt MD, Radiologist (Professor Of Biological Sciences) /QMB KYLEIGH WITT [facility] Encounter Notes: All associated encounter notes This section contains the clinical notes associated to the Encounter. Date/Time Encounter Note(s) Provider Source May 11, 2024 02:09 PM PSYCHOLOGY OUTPATI ENT NOTE: LOCAL TITLE: PRIMARY CARE PSYCHOLOGY NOTE [facility] STANDARD TITLE: PSYCHOLOGY OUTPATIENT NOTE DATE OF NOTE: MAY 11, 2024@14:09 ENTRY DATE: MAY 11, 2024@14:09:20 AUTHOR: KI DURHAM EXP COSIGNER: URGENCY: STATUS: COMPLETED Follow-up Template NAME: SCOTT WINTER DATE OF : Jan TIME SPENT WITH PATIENT: 30 minutes DIAGNOSIS BEING TREATED: PTSD CPT Code: 46074 NATURE OF ENCOUNTER: follow up visit SESSION FORMAT: [ ] [id number] [x ] Video Telehealth [ ]Phone Confirmed 's location and phone number for virtual appointment. [ x]Yes [facility] [ ]N/A NOTE: Use separate CVT template, if appropriate SESSION NUMBER: 1 INTERVENTION/TREATMENT PROVIDED [x ] [place] [x ] Shared decision-making regarding goals of care [x ] Supportive Psychotherapy [ ] Solution-Focused Psychotherapy [ ] Insight Oriented Psychotherapy [ ] Cognitive Behavioral Therapy Skills [ ] Acceptance and Commitment Therapy Skills [ ] Interpersonal Therapy Skills [ ] Motivational Interviewing [ ] Culture-based Interventions [ ] Health Psychology Interventions [ ] Evidence Based Psychotherapy: [ ] Psychosocial Interventions [x ] Other: Tx planning Description of Interventions Provided by Therapist: RELEVANT HISTORICAL DEVELOPMENTS SINCE LAST CONTACT: NOTE: Describe relevant historical developments below Gretchen reported he continues to struggle with his trauma symptoms. Gretchen reported being hypervigilant and alert. Feeling on edge in most situations. Gretchen expressed having a lot of survivors guilt which leads to him feeling depressed for prolonged periods of time. Also expressed feeling irritable, and having more impaired sleep. Morales has found multiple avenues to address his PTSD on his own. [facility] where he receives biweekly group therapy in addition to weekly individual therapy. Gretchen reported he also completed a trauma resiliency program with the [facility] where he was also awarded a service animal for PTSD. Gretchen reported he is happy with the road home program, but prefers to have all of [facility] treatment through the [facility]. Tools which he uses often is square box breathing and his emotional support animal. ASSESSMENT MEASURES USED: [ ] Measure in Mental Health [place] [facility]. See accompanying Mental Health Diagnostic Study for details. [X] Measure(s) sent via [facility], electronically following visit. agrees to asynchronous electronic administration; when returned, measure results will be included in a note or addendum in CPRS [ ] Other Measures: Measure: Score: Measure: Score: [ ] N/A: Not administered this session Date/Score of last administration: [ ]Functional/Symptom Assessment: Symptom(s)/Function(s) tracked by Changes in frequency, intensity or duration since last visit: Collaboratively discussed outcomes related to assessment and treatment progress and measures will continue to be monitored. MEASURABLE TREATMENT GOALS FOR THIS EPISODE OF CARE: 1. GOAL/OBJECTIVES: decrease symptoms related to trauma (old stuff I've suppressed over the years). PROGRESS TOWARDS GOAL: no progress, goal established this day 2. GOAL/OBJECTIVES: PROGRESS TOWARDS GOAL: 3. GOAL/OBJECTIVES: PROGRESS TOWARDS GOAL: RESPONSE TO INTERVENTIONS: Veterans participation/engagement: [X]The participated actively in the current interventions. [ ]Other: The continues to consent to the current plan of care: Yes Comments: RISK ASSESSMENT: [X] NO CHANGE IN RISK FACTORS Related to Suicide or Homicide. did not report any current suicidal/homicidal ideation, plan, or intent. did not appear to be at imminent risk for suicide or homicide at this time and is considered sustainable at the current level of care. [ ] NEW/UPDATED RISK ASSESSMENT: -RELEVANT RISK AND PROTECTIVE FACTORS: -IDEATION: [ ] [place] denied current suicidal or homicidal ideation, plan, or intent. [ ] Suicidal or homicidal ideation/behavior WAS identified: -CLINICAL JUDGMENT AND DISPOSITION: [ ] In consideration of relevant risk and protective factors, the [place] did NOT appear to be at imminent risk for suicide or homicide at this time and IS sustainable at the current level of care. [ ] [place] IS considered to be at INCREASED RISK for suicide or homicide based upon: -Actions/interventions taken to address risk and prevent harm include: -Emergency protocols initiated were: ASSIGNED WORK: Morales initially worked with [facility] psychologist in 2021. [place] reported he understands the nature of treatment provided in primary care and is looking for more long-term treatment for PTSD. Discussed options between [facility], and [facility]. reported he recently heard a talk from the [facility] and is interested in choosing that option at this time. This provider sent an email with an update to the [facility] staff making them aware of the referral. [place] reported he would give a call prior to driving to the [facility]. [place] plans to follow-up with the [facility] for ongoing needs. No further sessions made with this provider. does have this provider's contact information if he would like to treatment plan different options in the future. COLLABORATIVE RECOMMENDATIONS/PLAN: Collaboratively discussed outcomes related to assessment and treatment progress. Based on this discussion: [ ] No changes to plan of care. expressed agreement with therapy tasks and [id number]-[id number] plan. [x ] Using shared decision making, [place] and provider agreed to the following change in plan: Discharge to [facility] Educated [place] on the risks, benefits, and possible complications related to changes to treatment plan. [place] agreed to proceed with the change. [x ]YES [ ]NO It should be noted, this note was typed using a dictation software and there may be misspellings by mistake, as a result. [facility] (VVC)/Video to home template v1.5 Visit conducted by synchronous telehealth. [place] Location/emergency number confirmed. Environment surveyed and all participants identified. Virtual conference room locked. VVC/Video to home appointment information: The following items were reviewed: - The nature of telehealth, its benefits, and risks. - Confidentiality and its limits. - The importance of having a confidential location for the service. - The emergency plan. - The appointment should be treated like an in person appointment (no smoking or driving during session, showing up fully dressed, etc.) *The Virtual Medical Room was locked for this encounter. *A survey of the environment was conducted and it is appropriate to conduct a VVC appointment. *Confirmed [place]'s Non-VA location for this appointment: [place] [address] [place], [place] [id number] Address and phone number verified with [place]. Other Location: Address: [facility] parking lot [address] [place] [address], [facility] Phone: does not have an emergency contact. * was notified of right to decline Telehealth services and eligibility for other options. [place] consented to be seen via VVC. EMERGENCY PLAN In the event of an emergency, the [place] or family will call emergency services, if capable. The Teleprovider will remain in the virtual medical room until emergency response arrives and handoff to emergency services is complete. If [place] is unable to make emergency call, the Teleprovider is to call the national E911 service at [phone] and ask to be connected to emergency services for the 's location. 's Crisis Line: Dial 988 then press 1, or text [phone] Office of Connected Care Helpdesk ([facility]): [phone] or [phone] Verified Provider's location and contact information for this appointment: Other Location This provider is stationed at the [facility], but on this day was working virtually from home. Phone: /sherwin/ Ki Durham Psy.D. Staff Psychologist Signed: 05/11/2024 15:01 K[facility] DURH[facility]
--- OUTSIDE RECORDS SUMMARY | 2025-02-01 07:04 | XMS_ITS | Encounter Summary ---
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 Name Role Phone COONEYKHARI Primary Care Provider Unavailabl e Insurance Providers: [...] PLAN W/HEALTH SAVINGS ACCOUNT [facility] Jul 14, [id number] [phone] SCOTT WINTER PATIENT ANTHEM [place] H[place] DED[place] E HEALTH PLAN W/HEALTH SAVINGS ACCOUNT [facility] Jul 14, [id number] [id number] [phone] MAGGY SCOTT PATIENT [place] HEALTH PLAN W/HEALTH SAVINGS ACCOUNT [facility] Jul 14, [id number] [id number] [phone] SCOTT W[place] HEALTH PLAN W/HEALTH SAVINGS ACCOUNT [facility] Jul 14, [id number] QJ2 [id number] [phone] SCOTT WINTER PATIENT [place] PREFERRED PROVIDER ORGANIZAT ION (PPO) AMERE N CORPO RATIO N Jul 14, 2019 [id number] [phone] SCOTT WINTER PATIENT [employer] ([id number])RX PRESCRIPT ION AMERE N [facility] Jul 14, 2022 RX22AP [id number] [phone] SCOTT WINTER PATIENT [employer] ([id number]) PRESCRIPT ION AMERE N [place] Jul 14, 2019 A66A [id number] SCOTT WINTER PATIENT Selected Encounter This section includes the information on record at [facility] for the Encounter. Date/Time Encounter Type Encounter Description Reason Pro vider Source IHE Encounter Template Text not used by [facility]
--- OUTSIDE RECORDS SUMMARY | 2025-02-01 07:04 | XMS_ITS | Encounter Summary ---
Author Name [facility] [place] [facility] [place] Address [address] [place] [address] Care Team Providers Care Glass Beveler Name Role Phone KHARI HEATH Primary [facility] Insurance Providers: All historical and current [...] PLAN W/HEALTH SAVINGS ACCOUNT AMERE N RUBINA [facility] Jul 14, [id number] [phone] SCOTT WINTER PATIENT ANTHEM [employer] HIGH DEDUCTIBL E HEALTH PLAN W/HEALTH SAVINGS ACCOUNT AMERE N RUBINA [facility] Jul 14, [id number] [phone] MAGGY SCOTT PATIENT ANTHE[place]EDU[place] E HEALTH PLAN W/HEALTH SAVINGS ACCOUNT AMERE N RUBINA [facility] Jul 14, [id number] SCOTT W[place] PATIENT [place] HEALTH PLAN W/HEALTH SAVINGS ACCOUNT AMERE N RUBINA [facility] Jul 14, [id number] [phone] SCOTT W[place] PATIENT [place] PREFERRED PROVIDER ORGANIZAT ION (PPO) AMERE N CORPO RATIO N Jul 14, 2019 [id number] SCOTT WINTER PATIENT [employer] ([id number])RX PRESCRIPT ION AMERE N RUBINA [facility] Jul 14, 2022 [id number] [phone] SCOTT WINTER PATIENT [employer] ([id number]) PRESCRIPT ION AMERE N RUBINA Jul 14, 2019 [id number] SCOTT WINTER PATIENT Selected Encounter This section includes the information on record at CT for the Encounter. Date/Time Encounter Type Encounter Description Reason Provider Source Apr 06, 2024 02:30 PM OFFICE O/P EST MOD 30 MIN PRIMARY CARE/MEDICINE ICD-10-CM M54.50 Low back pain, unspecified KHARI HEATH Nu Encounter Template Text not used by CT Assessments - Encounter Diagnoses This section includes the primary and secondary diagnoses documented for the Encounter. Date/Time Primary/Secondary Diagnosis Diagnosis Name Provider Source Apr 06, 2024 03:56 PM PRIMARY Low back pain, unspecified KHARI HEATH [facility] Apr 06, 2024 03:56 PM SECONDARY Anxiety disorder, unspecified KHARI HEATH [facility] Apr 06, 2024 03:56 PM SECONDARY Depression, unspecified KHARI HEATH [facility] Apr 06, 2024 03:56 PM SECONDARY Encounter for immunization TERI QUINTANA [facility] Apr 06, 2024 03:56 PM SECONDARY Obesity, unspecified KHARI HEATH [facility] Apr 06, 2024 03:56 PM SECONDARY Obstructive sleep apnea (adult) (pediatric) KHARI HEATH [facility] Apr 06, 2024 03:56 PM SECONDARY Seborrheic dermatitis, unspecified [facility] Plan of Treatment: Future Appointments (+ 6 months) and Future Tests (+/- 45 days) The Plan of Treatment section includes future care activities for the patient from all CT treatmentfacilities. This section includes future appointments and future orders which are active, pending or scheduled. Future Appointments This section includes appointments that were scheduled to occur 6 months from the date of the Encounter, up to a maximum of 20 appointments. The data comes from all CT treatment facilities. Appointment Date/Time Appointment Type Appointme nt Facility Name May 06, 2024 02:00 PM AMBULATORY - NONE [facility] May 11, 2024 01:00 PM AMBULATORY - NONE [facility] May 11, 2024 02:00 PM AMBULATORY - MEDICINE [facility] Aug 18, 2024 08:00 AM AMBULATORY - PSYCHIATRY [facility] Lab Results: +/- 30 days of the encounter This section includes the Chemistry and Hematology Lab Results on record with CT for the patient. Radiology Reports and Pathology Reports are provided separately, in subsequent sections. Lab Results This section contains the Chemistry/Hematology Results that were resulted 30 days before or 30 daysafter the date of the Encounter. Date/Time Source Result Type Result - Unit Interpretation Reference Range Specimen Type Comment Apr 12, 2024 12:40 PM [facility] LIPID PANEL (STL) PLASMA Specimen Type: PLASMA Comment: No hemolysis noted. Ordering Provider: KHARI HEATH Report Released Date/Time: Apr 06, 2024 03:58 PM Reporting Lab: [facility] [address] [facility] [address] Performing Lab: [facility] [address] [facility] [address] CHOLESTEROL 208 mg/dL H 0-200 TRIGLYCERIDE 246 mg/dL H 0-150 CALCULATED LDL 106 mg/dL HDL(New) 53 mg/dL >40 Apr 12, 2024 12:40 PM [facility] COMPREHENSIVE METABOLIC PANEL PLASMA Specimen Type: PLASMA Comment: No hemolysis noted. Ordering Provider: KHARI HEATH Report Released Date/Time: Apr 06, 2024 03:58 PM Reporting Lab: [facility] [address] [facility] [address] Performing Lab: [facility] [address] [facility] [address] CREATININE 1.02 mg/dL 0.7-1.3 UREA NITROGEN 18.5 [...] 96.5 >60 Apr 12, 2024 12:40 PM [facility] HGA1C BLOOD Specimen Type: BLOOD No comment entered. Ordering Provider: KHARI HEATH Report Released Date/Time: Apr 06, 2024 03:58 PM Reporting Lab: [address] [address] Performing Lab: [address] [address] HGA1C 5.3 4.0-6.0 Apr 12, 2024 12:40 PM [facility] VITAMIN D, 25-HYDROXY SERUM Specime n Type: SERUM No comment entered. Ordering Provider: KHARI HEATH Report Released Date/Time: Apr 06, 2024 03:58 PM Reporting Lab: [address] [address] Performing Lab: [address] [address] VITAMIN D, 25-HYDROXY 42.6 ng/mL 30-96 Apr 12, 2024 12:40 PM [facility] CBC BLOOD Specimen Type: BLOOD No comment entered. Ordering Provider: KHARI HEATH Report Released Date/Time: Apr 06, 2024 03:58 PM Reporting Lab: [address] [address] Performing Lab: [address] [address] WBC 8.2 10*3/uL 3.6-11.2 RBC 4.76 10*6/uL [...] 0.00-0. 20 Apr 12, 2024 12:40 PM [facility] TSH W/ REFLEX FT4 (STL) PLASMA Speci men Type: PLASMA No comment entered. Ordering Provider: KHARI HEATH Report Released Date/Time: Apr 06, 2024 03:58 PM Reporting Lab: [facility] [address] [facility] [address] Performing Lab: [facility] [address] [facility] [address] TSH 1.183 u[IU]/mL 0.47-5 Vital Signs: All taken on the encounter date This section contains inpatient and outpatient Vital Signs collected on the date of the Encounter. Date/Time Temperature Pulse Blood Pressure Respiratory Rate SP02 Pain Height Weight Body Mass Index Source Apr 06, 2024 02:38 PM 98 60 112/71 20 97 3 241 35 [facility] Immunizations: All administered on the encounter date This section contains immunizations associated to the Encounter. Immunization Series Date Issued Administered By Site Reaction Lot Number CVX Code Drug Child Development Consultant Comment(s) Source INFLUENZA, SPLIT VIRUS, TRIVALENT, PF Apr 06, 2024 [place]I [place] [id number] Us AT [facility] Social History: Smoking Status (Most current) and Tobacco Use (All prior to encounter date) This section includes the most current, and the historical, smoking and tobacco- related health factors from the CT facility where the Encounter took place. Current Smoking Status This section includes the most current smoking, or tobacco-related health factor, from the CT facility where the Encounter took place. Date/Time Current Smoking Status Comment Facil ity Apr 06, 2024 02:30 PM VA-TOBACCO NEVER USED [facility] Tobacco Use History This section includes a history of the smoking, or tobacco-related health factors, that were collected on or before the date of the Encounter. The data comes from the CT facility where the Encounter took place. Date/Time Smoking Status/Tobacco Use Comment F acility Apr 07, 2023 01:30 PM VA-TOBACCO FORMER USER . [facility] Apr 07, 2023 01:30 PM VA-TOBACCO QUIT 1 TO < 5 YRS [facility] Apr 06, 2021 09:00 AM VA-TOBACCO FORMER USER [facility] Apr 06, 2021 09:00 AM VA-TOBACCO QUIT 1 TO < [address] [facility] Apr 07, 2020 02:30 PM VA-TOBACCO NEVER USED [facility] Radiology Reports: +/- 30 days of the [...] the Encounter. The data comes from all CT treatment facilities. Date/Time Radiology Report Provider Source Apr 12, 2024 12:31 PM SPINE LUMBOSACRAL 2 OR 3 VIEWS: SCOTT WINTER [id number] M Exm Date: APR 12, 2024@12:31 Req Phys: KHARI HEATH Loc: [facility] PACT 5 (Req'g Loc) Img Loc: [facility] SUITE Service: [address] [address] (Case [id number] COMPLETE) SPINE LUMBOSACRAL 2 OR 3 VIEWS (RAD Detailed) CPT:89941 Reason for Study: Low back pain Clinical History: Report Status: Verified Date Reported: APR 12, 2024 Date Verified: APR 12, 2024 Health Program Specialist E-Sig:/SHERWIN/Kyleigh Witt MD Report: FINDINGS: No significant abnormalities demonstrated in lumbar spine. Disc spaces appeared preserved throughout and vertebral alignment is satisfactory. Vertebral bodies appear intact. Sacroiliac joints and visualized renal areas appear unremarkable. No other significant finding is seen. Impression: Negative. Primary Interpreting Staff: Kyleigh Witt MD, Radiologist (Health Program Specialist) /QMB KYLEIGH WITT [facility] Encounter Notes: All associated encounter notes This section contains the clinical notes associated to the Encounter. Date/Time Encounter Note(s) Provider Source Apr 06, 2024 03:57 PM ADDENDUM: LOCAL TITLE: Addendum STANDARD TITLE: ADDENDUM DATE OF NOTE: APR 06, 2024@15:57:29 ENTRY DATE: APR 06, 2024@15:57:31 AUTHOR: KHARI HEATH COSIGNER: URGENCY: STATUS: COMPLETED Patient would like to schedule an appointment to discuss low-fat diet and exercise. /sherwin/ KHARI HEATH PA-C Signed: 04/06/2024 15:57 Receipt Acknowledged By: 04/08/2024 08:14 /sherwin/ GLEN GOODSON Clinical Dietitian --- Original Document --- 04/06/24 PRIMARY CARE PROVIDER ESTABLISHED VISIT ST[facility]: * [place] presents for Annual Visit PCP:Dr. Tinoco SPECIALISTS:Civilian MH/ortho, VA aud SUBJECTIVE HPI: [place] is a 39 y/o patient to clinic today for an annual VA appt to discuss chronic issues to include chronic low back pain and sleep apnea. Patient reports that he continues to see his civilian primary care provider every 6 months secondary to his chronic medical conditions. Patient also says he recently had a civilian sleep study completed which showed sleep apnea patient has been started on BiPAP and is requesting supplies to include hoses as well as mask at today's appointment. Patient says he continues to have issues with chronic low back pain and is interested in further treatment through the CT resources. Patient says that he has pain with bending and twisting as well as lifting but denies any recent trauma to the low back area. Patient also denies any loss of bowel or bladder control or radicular symptoms. Patient says that he continues to workout daily as his low back allows him to and is trying to adhere to a high-protein diet. Of note the patient did not have lab work done prior to today's appointment but will have labs drawn in the clinic this week. Patient denies headaches, chest pain, SOB, problems with bowel/bladder, or swelling to the BLE. The patient has no other complaints in the clinic today. Smoking:N Exercise:Y, wt/cardio daily Diet:Y, high protien Alcohol:N PERTINENT PMH: 1. Chronic LBP 2. Obstructive sleep apnea 3. Obesity 4. Anxiety/depression 5. Seborrheic dermatitis MEDICATIONS: Active Outpatient Medications (including Supplies): Active Outpatient Medications Status 1) BUPROPION HCL 150MG 24HR SA TAB TAKE ONE TABLET BY ACTIVE MOUTH ONCE A DAY SWALLOW WHOLE - DO NOT CRUSH OR CHEW. 2) HYDROXYZINE HCL 10MG TAB TAKE ONE TABLET BY MOUTH AT ACTIVE BEDTIME *MAY CAUSE DROWSINESS* 3) KETOCONAZOLE 2% SHAMPOO USE SHAMPOO TO AFFECTED ACTIVE AREA(S) EVERY FIVE DAYS (EXTERNAL USE ONLY) (SHAKE WELL) 4) SELENIUM SULFIDE 1% SHAMPOO USE SMALL AMOUNT TO ACTIVE AFFECTED AREA(S) ONCE A DAY ALLERGIES: Patient has answered NKA DATA REVIEW: HGA1C 5.0 % 04/07/2023 14:10 HGA1C 4.9 % 03/25/2022 12:00 HGA1C 5.3 % 06/09/2020 14:51 Lipid Panel: TRIGLYCERIDE 124 mg/dL 04/07/2023 14:10 CHOLESTEROL 181 mg/dL 04/07/2023 14:10 HDL(New) 54 mg/dL 04/07/2023 14:10 CALCULATED LDL 102 mg/dL 04/07/2023 14:10 CMP: SODIUM 142 mEq/L 04/07/2023 14:10 POTASSIUM 4.8 mEq/L 04/07/2023 14:10 CHLORIDE 105 mEq/L 04/07/2023 14:10 UREA NITROGEN 15.0 mg/dL 04/07/2023 14:10 CREATININE 1.22 mg/dL 04/07/2023 14:10 CALCIUM 9.7 mg/dL 04/07/2023 14:10 PROTEIN 7.4 g/dL 04/07/2023 14:10 ALBUMIN 4.4 g/dL 04/07/2023 14:10 ALKALINE PHOSPHATASE 67 U/L 04/07/2023 14:10 ALT/SGPT 15 U/L 04/07/2023 14:10 AST/SGOT 21 U/L 04/07/2023 14:10 TOTAL BILIRUBIN 0.5 mg/dL 04/07/2023 14:10 CARBON DIOXIDE 28 mEq/L 04/07/2023 14:10 GLUCOSE 92 mg/dL 04/07/2023 14:10 EGFR (CKD-EPI 2020) 78.3 04/07/2023 14:10 CBC: WBC 7.5 10*3/uL 04/07/2023 14:10 RBC 4.68 10*6/uL 04/07/2023 14:10 HGB 14.3 g/dL 04/07/2023 14:10 HCT 43.9 % 04/07/2023 14:10 MCV 93.8 fL 04/07/2023 14:10 MCH 30.6 pg 04/07/2023 14:10 MCHC 32.6 L g/dL 04/07/2023 14:10 RDW 12.9 % 04/07/2023 14:10 PLT 238 10*3/uL 04/07/2023 14:10 MPV 11.0 fL 04/07/2023 14:10 NEUTROPHILS, AUTO % 53 % 04/07/2023 14:10 LYMPHOCYTES, AUTO % 36 % 04/07/2023 14:10 MONOCYTES, AUTO % 8 % 04/07/2023 14:10 EOSINOPHILS, AUTO % 2 % 04/07/2023 14:10 BASOPHILS, AUTO % 1 % 04/07/2023 14:10 NEUTROPHILS, ABSOLUTE 4.00 10*3/uL 04/07/2023 14:10 LYMPHOCYTES, ABSOLUTE 2.68 10*3/uL 04/07/2023 14:10 MONOCYTES, ABSOLUTE 0.57 10*3/uL 04/07/2023 14:10 EOSINOPHILS, ABSOLUTE 0.18 10*3/uL 04/07/2023 14:10 BASOPHILS, ABSOLUTE 0.05 10*3/uL 04/07/2023 14:10 No PSA (LAST 10 5Y) EO data found TSH: No TSH (1YR) EO data found VITAMIN D, 25-HYDROXY 48.6 ng/mL 03/25/2022 12:00 UA: No URINALYSIS EO data found VITALS: BP: 112/71 P: 60 R: 20 WT: 241 T: 98 reviewed OBJECTIVE: GENERAL: Alert, well developed/nourished, NAD SKIN: No rashes, no jaundice, warm/dry, intact HEENT: PERRLA, nares patent, throat clear CV: RRR, S1 S2 no murmurs, rubs or gallops RESP: CTA, no crackles, rhonchi, wheezing NECK: Supple, no bruit, no thyromegaly/nodules ABD: Obese with no ttp or HSM noted EXT: No edema, no cyanosis PSY: Pleasant, appropriate, no obvious delusions or hallucinations ASSESSMENT/PLAN: 1. Chronic LBP, ongoing issue. I will start the patient on diclofenac gel applied to the affected area 4 times a day as needed as well as Salonpas patches applied to the affected area daily. X-rays of the lumbar spine have been ordered to be completed at radiology. 2. Obstructive sleep apnea, stable with BiPAP. I ordered BiPAP supplies as requested by the patient at today's appointment to include mask and hoses. 3. Obesity, ongoing issue. Low-fat diet and exercise were discussed at today's appointment and I will alert our dietitian that the patient is interested in a follow-up appointment with that service. 4. Anxiety/depression, stable per patient report although he is interested in reestablishing with our mental health team. Patient denies any suicidal ideation at today's appointment and was given the [facility] crisis line number. Patient to schedule a follow-up appointment with our mental health team following today's appointment. 5. Seborrheic dermatitis, stable with current treatment plan. * Patient have labs drawn in the clinic this week. When the lab work is completed we will contact him with results. * Medical conditions discussed with , medications refilled at appointment today. * Return to clinic with routine labs: 1 year. * Patient stated understanding and was agreeable with this treatment plan. Follow-Up Pos PTSD/Depression: I have reviewed the results of the Mental Health screens and have evaluated the patient. Based on the evaluation, the following disposition plan will be implemented: Patient to be evaluated by Mental Health Routine/Non-emergent Mental Health Evaluation needed. Comment: Patient to schedule follow-up appointment with mental health after today's appointment. /sherwin/ KHARI HEATH PA-C Signed: 04/06/2024 15:57 KHARI HEATH Yue [facility] Apr 06, 2024 02:57 PM PRIMARY CARE NOTE: LOCAL TITLE: PRIMARY CARE PROVIDER ESTABLISHED VISIT [facility] STANDARD TITLE: PRIMARY CARE NOTE DATE OF NOTE: APR 06, 2024@14:57 ENTRY DATE: APR 06, 2024@14:57:49 AUTHOR: KHARI HEATH EXP COSIGNER: URGENCY: STATUS: COMPLETED PRIMARY CARE PROVIDER ESTABLISHED VISIT [facility] Has ADDENDA * presents for Annual Visit PCP:Dr. Tinoco SPECIALISTS:Civilian MH/ortho, VA aud SUBJECTIVE HPI: is a 39 y/o patient to clinic today for an annual VA appt to discuss chronic issues to include chronic low back pain and sleep apnea. Patient reports that he continues to see his civilian primary care provider every 6 months secondary to his chronic medical conditions. Patient also says he recently had a civilian sleep study completed which showed sleep apnea patient has been started on BiPAP and is requesting supplies to include hoses as well as mask at today's appointment. Patient says he continues to have issues with chronic low back pain and is interested in further treatment through the [facility]. Patient says that he has pain with bending and twisting as well as lifting but denies any recent trauma to the low back area. Patient also denies any loss of bowel or bladder control or radicular symptoms. Patient says that he continues to workout daily as his low back allows him to and is trying to adhere to a high-protein diet. Of note the patient did not have lab work done prior to today's appointment but will have labs drawn in the clinic this week. Patient denies headaches, chest pain, SOB, problems with bowel/bladder, or swelling to the BLE. The patient has no other complaints in the clinic today. Smoking:N Exercise:Y, wt/cardio daily Diet:Y, high protien Alcohol:N PERTINENT PMH: 1. Chronic LBP 2. Obstructive sleep apnea 3. Obesity 4. Anxiety/depression 5. Seborrheic dermatitis MEDICATIONS: Active Outpatient Medications (including Supplies): Active Outpatient Medications Status 1) BUPROPION HCL 150MG 24HR SA TAB TAKE ONE TABLET BY ACTIVE MOUTH ONCE A DAY SWALLOW WHOLE - DO NOT CRUSH OR CHEW. 2) HYDROXYZINE HCL 10MG TAB TAKE ONE TABLET BY MOUTH AT ACTIVE BEDTIME *MAY CAUSE DROWSINESS* 3) KETOCONAZOLE 2% SHAMPOO USE SHAMPOO TO AFFECTED ACTIVE AREA(S) EVERY FIVE DAYS (EXTERNAL USE ONLY) (SHAKE WELL) 4) SELENIUM SULFIDE 1% SHAMPOO USE SMALL AMOUNT TO ACTIVE AFFECTED AREA(S) ONCE A DAY ALLERGIES: Patient has answered NKA DATA REVIEW: HGA1C 5.0 % 04/07/2023 14:10 HGA1C 4.9 % 03/25/2022 12:00 HGA1C 5.3 % 06/09/2020 14:51 Lipid Panel: TRIGLYCERIDE 124 mg/dL 04/07/2023 14:10 CHOLESTEROL 181 mg/dL 04/07/2023 14:10 HDL(New) 54 mg/dL 04/07/2023 14:10 CALCULATED LDL 102 mg/dL 04/07/2023 14:10 CMP: SODIUM 142 mEq/L 04/07/2023 14:10 POTASSIUM 4.8 mEq/L 04/07/2023 14:10 CHLORIDE 105 mEq/L 04/07/2023 14:10 UREA NITROGEN 15.0 mg/dL 04/07/2023 14:10 CREATININE 1.22 mg/dL 04/07/2023 14:10 CALCIUM 9.7 mg/dL 04/07/2023 14:10 PROTEIN 7.4 g/dL 04/07/2023 14:10 ALBUMIN 4.4 g/dL 04/07/2023 14:10 ALKALINE PHOSPHATASE 67 U/L 04/07/2023 14:10 ALT/SGPT 15 U/L 04/07/2023 14:10 AST/SGOT 21 U/L 04/07/2023 14:10 TOTAL BILIRUBIN 0.5 mg/dL 04/07/2023 14:10 CARBON DIOXIDE 28 mEq/L 04/07/2023 14:10 GLUCOSE 92 mg/dL 04/07/2023 14:10 EGFR (CKD-EPI 2020) 78.3 04/07/2023 14:10 CBC: WBC 7.5 10*3/uL 04/07/2023 14:10 RBC 4.68 10*6/uL 04/07/2023 14:10 HGB 14.3 g/dL 04/07/2023 14:10 HCT 43.9 % 04/07/2023 14:10 MCV 93.8 fL 04/07/2023 14:10 MCH 30.6 pg 04/07/2023 14:10 MCHC 32.6 L g/dL 04/07/2023 14:10 RDW 12.9 % 04/07/2023 14:10 PLT 238 10*3/uL 04/07/2023 14:10 MPV 11.0 fL 04/07/2023 14:10 NEUTROPHILS, AUTO % 53 % 04/07/2023 14:10 LYMPHOCYTES, AUTO % 36 % 04/07/2023 14:10 MONOCYTES, AUTO % 8 % 04/07/2023 14:10 EOSINOPHILS, AUTO % 2 % 04/07/2023 14:10 BASOPHILS, AUTO % 1 % 04/07/2023 14:10 NEUTROPHILS, ABSOLUTE 4.00 10*3/uL 04/07/2023 14:10 LYMPHOCYTES, ABSOLUTE 2.68 10*3/uL 04/07/2023 14:10 MONOCYTES, ABSOLUTE 0.57 10*3/uL 04/07/2023 14:10 EOSINOPHILS, ABSOLUTE 0.18 10*3/uL 04/07/2023 14:10 BASOPHILS, ABSOLUTE 0.05 10*3/uL 04/07/2023 14:10 No PSA (LAST 10 5Y) EO data found TSH: No TSH (1YR) EO data found VITAMIN D, 25-HYDROXY 48.6 ng/mL 03/25/2022 12:00 UA: No URINALYSIS EO data found VITALS: BP: 112/71 P: 60 R: 20 WT: 241 T: 98 reviewed OBJECTIVE: GENERAL: Alert, well developed/nourished, NAD SKIN: No rashes, no jaundice, warm/dry, intact HEENT: PERRLA, nares patent, throat clear CV: RRR, S1 S2 no murmurs, rubs or gallops RESP: CTA, no crackles, rhonchi, wheezing NECK: Supple, no bruit, no thyromegaly/nodules ABD: Obese with no ttp or HSM noted EXT: No edema, no cyanosis PSY: Pleasant, appropriate, no obvious delusions or hallucinations ASSESSMENT/PLAN: 1. Chronic LBP, ongoing issue. I will start the patient on diclofenac gel applied to the affected area 4 times a day as needed as well as Salonpas patches applied to the affected area daily. X-rays of the lumbar spine have been ordered to be completed at radiology. 2. Obstructive sleep apnea, stable with BiPAP. I ordered BiPAP supplies as requested by the patient at today's appointment to include mask and hoses. 3. Obesity, ongoing issue. Low-fat diet and exercise were discussed at today's appointment and I will alert our dietitian that the patient is interested in a follow-up appointment with that service. 4. Anxiety/depression, stable per patient report although he is interested in reestablishing with our mental health team. Patient denies any suicidal ideation at today's appointment and [facility]. Patient to schedule a follow-up appointment with our mental health team following today's appointment. 5. Seborrheic dermatitis, stable with current treatment plan. * Patient have labs drawn in the clinic this week. When the lab work is completed we will contact him with results. * Medical conditions discussed with [place], medications refilled at appointment today. * Return to clinic with routine labs: 1 year. * Patient stated understanding and was agreeable with this treatment plan. Follow-Up Pos PTSD/Depression: I have reviewed the results of the Mental Health screens and have evaluated the patient. Based on the evaluation, the following disposition plan will be implemented: Patient to be evaluated by Mental Health Routine/Non-emergent Mental Health Evaluation needed. Comment: Patient to schedule follow-up appointment with mental health after today's appointment. /angella HEATH PA-C Signed: 04/06/2024 15:57 04/06/2024 ADDENDUM STATUS: COMPLETED Patient would like to schedule an appointment to discuss low-fat diet and exercise. /angella HEATH PA-C Signed: 04/06/2024 15:57 Receipt Acknowledged By: * AWAITING SIGNATURE * GLEN GOODSON [facility] Apr 06, 2024 02:42 PM NURSING NOTE: LOCAL TITLE: V15 PACT FACE TO FACE NOTE STL STANDARD TITLE: NURSING NOTE DATE OF NOTE: APR 06, 2024@14:42 ENTRY DATE: APR 06, 2024@14:42:10 AUTHOR: TERI QUINTANA COSIGNER: URGENCY: STATUS: COMPLETED Provider Visit: Patient Identifiers : Full Name Date of Reason for visit: Established Follow-Up Mode of Arrival: Ambulatory Allergy Review: Patient has answered NKA Allergy list reviewed and remains current. Recent Vital Signs: Temperature: 98 F [36.7 C] (04/06/2024 14:38) Pulse: 60 (04/06/2024 14:38) Respiration: 20 (04/06/2024 14:38) B/P: 112/71 (04/06/2024 14:38) Pain: 3 (04/06/2024 14:38) Wt: 241 lb [109.32 kg] (04/06/2024 14:38) Ht: 70 in [177.8 cm] (03/25/2022 09:31) BMI: 34.7 POX: 97% (04/06/2024 14:38) Would you like to discuss any personal problem, family problem, alcohol use, drug use, or a mental or emotional illness? No Contact provided Primary Care phone number and encouraged to call if any questions or concerns. Review that after hours nurse line [phone] and emergency room are available 03/02 for patient use. Contact verbalized good understanding. Suicide Screen: C-SSRS Screening [place]-Suicide Severity Rating Scale (C-SSRS Screener) 1. Over the past month, have you wished you were or wished you could go to sleep and not wake up? No 2. Over the past month, have you had any actual thoughts of killing yourself? No 3. Over the past month, have you been thinking about how you might do this? Response not required due to responses to other questions. 4. Over the past month, have you had these thoughts and had some intention of acting on them? Response not required due to responses to other questions. 5. Over the past month, have you started to work out or worked out the details of how to kill yourself? Response not required due to responses to other questions. 6. If yes, at any time in the past month did you intend to carry out this plan? Response not required due to responses to other questions. 7. In your lifetime, have you ever done anything, started to do anything, or prepared to do anything to end your life (for example, collected pills, obtained a gun, gave away valuables, went to the roof but didn't jump)? No 8. If YES, was this within the past 3 months? Response not required due to responses to other questions. Alcohol Use Screen (AUDIT-C): Alcohol Screen: SCREEN FOR ALCOHOL (AUDIT-C) An alcohol screening test (AUDIT-C) was negative (score=0). 1. How often did you have a drink containing alcohol in the past year? Consider a drink to be a 12 ounce can or bottle of regular beer, 8 ounces of malt liquor, a 5 ounce glass of table wine, or a 1.5 ounce shot of liquor (like scotch, gin, or vodka). Never 2. How many drinks containing alcohol did you have on a typical day when you were drinking in the past year? Response not required due to responses to other questions. 3. How often did you have six or more drinks on one occasion in the past year? Response not required due to responses to other questions. Depression Screening: Perform PHQ-2 A PHQ-2 screen was performed. The score was 6 which is a positive screen for depression. Over the past two weeks, how often have you been bothered by the following problems? 1. Little interest or pleasure in doing things Nearly every day 2. Feeling down, depressed, or hopeless Nearly every day Licensed Independent Provider notified of positive screen and need for follow-up. Name of provider notified: [facility] Gay Tobacco Use Screening: The patient has never used tobacco. Learning Assessment: - * This patient's learning ABILITIES, BARRIERS to learning, CULTURAL and RELIGION beliefs, and learning PREFERENCES were assessed. Following are findings of note: Patient reads well. 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 Patient has the following speech barrier to consider when teaching: No speech barrier identified. LANGUAGE Patient reports that [place] is preferred language for healthcare. Patient has the following language barrier to consider when teaching: No language barrier has been identified. Patient has the following vision barrier(s) to consider when teaching: OtherPt. said he requires glasses for seeing [facility] MAP: PERSONAL HEALTH PLAN INVENTORY & MAP 's Response: Family Homelessness/Food Insecurity Screen: In the past 2 months, have you been living in stable housing that you own, rent, or stay in as part of a household? Yes - Living in stable housing. Are you worried or concerned that in the next 2 months you may NOT have stable housing that you own, rent, or stay in as part of a household? No - Not worried about housing near future [facility] reports the following: Within the past 12 months, you worried whether your food would run out before you got money to buy more. Never true Within the past 12 months, the food you bought just didn't last and you didn't have money to get more. Never true Influenza Immunization: Influenza, Trivalent, Preservative Free (Fluarix-Syringe) Administered: INFLUENZA, SPLIT VIRUS, TRIVALENT, PF Date Administered: Apr 06, 2024 14:30 Child Development Consultant: HOSTING Lot: [id number] Exp Date: Jan 10, 2025 [facility]: [phone] Admin Route/Site: INTRAMUSCULAR/RIGHT DELTOID Dosage: 0.5mL Vaccine Information Statement(s): INFLUENZA(FLU) VACC(INACTIVATED OR RECOMBINANT)VIS Feb 16, 2021 (EMIRATI) Order By: Khari Heath Administered By: Teri Quintana The Influenza Vaccine Information Statement (VIS) was reviewed with the patient/caregiver which lists the benefits and risks of the vaccine and the risks of not receiving the Influenza vaccine. The patient/caregiver denied any prior severe reaction to this vaccine or its components or a severe allergic reaction, such as anaphylaxis, to any vaccine or any injectable therapy. The patient/caregiver gave verbal consent to receive the vaccine. /sherwin/ TERI ANGLINN LICENSED PRACTICAL NURSE Signed: 04/06/2024 14:[address] [facility]
--- OUTSIDE RECORDS SUMMARY | 2025-02-01 07:04 | XMS_ITS | Continuity of Care Document ---
Author Name [facility] Organization [facility] Care Team Providers Care Manager Of Radiology Name Role Phone [facility] Unavailable Unavailable Problems Combined list of problems from Department of Defense and Veterans Affairs facilities. It does not include entries that were removed or entered in error. 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 DoD SPRAIN Active Condition DoD visit for: follow-up exam Active Condition Superior temporal scotoma OS on HVF 30-2; Area of macular scarring nasal to fovea OS noted on DFE DoD NORMAL ROUTINE OPHTHALMOLOGICAL EXAM Active Condition Macular scarring OS DoD visit for: ears / hearing exam Inactive Condition DoD visit for: ears, nose, and throat exam Inactive Condition DoD REFRACTIVE ERROR Active Condition DoD NEW PATIENT OPHTHALMOLOGICAL EXAM Inactive Condition DoD ACUTE MENISCAL TEAR Active Condition 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 DoD visit for: administrative purpose Inactive Condition DoD Patient Education Active Condition to bacco cessation DoD Need For Vaccination Hepatitis A Inactive Condition DoD PLICA SYNDROME Active Condition DoD Patellar tendinitis Active Condition Do D Occupational Therapy Inactive Condition DoD visit for: preoperative orthopedic exam Inactive Condition DoD numbness of one entire side Active Condition DoD INTERNAL DERANGEMENT OF KNEE MEDIAL MENISCUS Active Condition DoD OLD DISRUPTION OF ANTERIOR CRUCIATE LIGAMENT LEFT Active Condition DoD ACUTE MENISCAL TEAR MEDIAL Active Condition DoD TENDONITIS PATELLAR Active Condition Do D KNEE SPRAIN CRUCIATE LIGAMENT ANTERIOR LEFT Inactive Condition DoD KNEE SPRAIN Inactive Condition Continue crutches and meds. Sports med eval tomorrow. DoD joint pain, localized Active Condition DoD RAYO SCHLATTER DISEASE Active Condition DoD Anxiety (SNOMED CT [id number]) Active Condition . [facility] Chronic low back pain Active Condition . [facility] Depression Active Condition . [facility] Exposure to potentially hazardous substance Active Condition [facility] Family history of cancer of colon Active Condition Mar 25, 2022 Entered By: DALTON MARTINEZ Comment: father dx at aged 55; pt due to start screening aged 46. [facility] History of sleeve gastrectomy Active Condition Mar 25, 2022 Entered By: DALTON MARTINEZ Comment: Jun 2020 [facility] Obesity Active Condition [facility] Obstructive sleep apnea Active Condition [facility] Pain of Right Knee ([facility] [id number]) Active Condition [facility] Pain of right shoulder joint Active Condition [facility] Posttraumatic stress disorder Active Condition [facility] Seborrheic dermatitis Active Condition [facility] Tinnitus Active Condition [facility] Diagnosis: ICD-10-CM F43.10 Post-traumatic stress disorder, unspecified Active Diagnosis [facility] Diagnosis: ICD-10-CM G47.33 Obstructive sleep apnea (adult) (pediatric) Active Diagnosis [facility] Diagnosis: ICD-10-CM Z71.89 Other specified counseling Active Diagnosis [facility] Diagnosis: ICD-10-CM F41.9 Anxiety disorder, unspecified Active Diagnosis [facility] Diagnosis: ICD-10-CM Z65.9 Problem related to unspecified psychosocial circumstances Active Diagnosis [facility] Diagnosis: ICD-10-CM M25.511 Pain in right shoulder Active Diagnosis [facility] Diagnosis: ICD-10-CM M54.50 Low back pain, unspecified Active Diagnosis [facility] Diagnosis: ICD-10-CM H90.3 Sensorineural hearing loss, bilateral Active Diagnosis [facility] Medications Combined list of outpatient medications from Department of Defense and Veterans Affairs facilities.Medications provided include 1) outpatient medications from the last 15 months, and 2) patient-reported medications. Medication Details Route Status Patient Instructions Prescription Expires Prescription Number Last Dispense Date Ordering Provider Order Date Order Qty Source BUPROPION HCL 150MG 24HR TAB,SA TAKE ONE TABLET BY MOUTH ONCE A DAY FOR DEPRESSI ON SWALLOW WHOLE - DO NOT CRUSH OR CHEW. ORAL ACTIVE 11/21/2025 [id number] 5 DILCIAAMPGab HOLMANBI NU 2024 90 [facility] BUPROPION HCL 150MG 24HR TAB,SA TAKE ONE TABLET BY MOUTH ONCE A DAY FOR DEPRESSI ON SWALLOW WHOLE - DO NOT CRUSH OR CHEW. ORAL DISCONT INUED 08/19/2025 [id number] 5 ZAHED,TAR A 2024 90 [facility] BUPROPION HCL 150MG 24HR TAB,SA TAKE ONE TABLET BY MOUTH ONCE A DAY SWALLOW WHOLE - DO NOT CRUSH OR CHEW. ORAL 04/07/2024 [id number] 4 KHARI COONEY 2022 90 [facility] CAMPHOR/MEN THOL/METHYL SALICYLATE LARGE PATCH APPLY 1 PATCH TO SKIN SITE ONCE A DAY (EXTERNA L USE ONLY) TRANSD ERMAL ACTIVE 04/07/2025 [id number] 4 KHARI COONEY 2023 12 [facility] DICLOFENAC NA 1% GEL,TOP APPLY 2 GM TO AFFECTED AREA(S) FOUR TIMES A DAY DO NOT EXCEED MORE THAN 16 GRAMS DAILY TO ANY LOWER EXTREMIT Y JOINT. NOT MORE THAN 8 GRAMS DAILY TO ANY UPPER EXTREMIT Y JOINT. MAX 32GM/DAY OVER ALL JOINTS. (MEASURE DOSE WITH RULER ATTACHED INSIDE BOX) TOPICA L ACTIVE 04/07/2025 [id number] 4 KHARI COONEY 2023 300 [facility] HYDROXYZINE HCL 10MG TAB TAKE ONE TABLET BY MOUTH AT BEDTIME *MAY CAUSE DROWSINE SS* ORAL 04/07/2024 [id number] 4 KHARI COONEY 2022 90 [facility] KETOCONAZOL E 2% SHAMPOO USE SHAMPOO TO AFFECTED AREA(S) EVERY FIVE DAYS (EXTERNA L USE ONLY) (SHAKE WELL) TOPICA L ACTIVE 04/07/2025 [id number] 4 KHARI COONEY 2023 120 [facility] KETOCONAZOL E 2% SHAMPOO USE SHAMPOO TO AFFECTED AREA(S) EVERY FIVE DAYS (EXTERNA L USE ONLY) (SHAKE WELL) TOPICA L DISCONT INUED 04/07/2024 [id number] 4 KHARI COONEY 2022 120 [facility] LAMOTRIGINE 100MG TAB TAKE ONE-HALF TABLET BY MOUTH TWICE A DAY ORAL DISCONT INUED (EDIT) 04/07/2025 [id number] 4 KHARI COONEY 2023 90 [facility] LAMOTRIGINE 200MG TAB TAKE ONE-HALF TABLET BY MOUTH TWICE A DAY ANXIETY/ ANGER ORAL ACTIVE 08/19/2025 [id number] 5 ZAHED,TAR A [address] [place] [address] [facility] LORATADINE 10MG TAB TAKE ONE TABLET BY MOUTH ONCE A DAY ON EMPTY STOMACH ORAL ACTIVE 04/07/2025 [id number] 5 KHARI COONEY 2023 90 [facility] PROPRANOLOL HCL 60MG CAP,SA TAKE ONE CAPSULE BY MOUTH ONCE A DAY ORAL ACTIVE 08/19/2025 [id number] 5 ZAHED,TAR A 2024 90 [facility] PROPRANOLOL HCL 60MG CAP,SA TAKE ONE CAPSULE BY MOUTH ONCE A DAY ORAL DISCONT INUED 04/07/2025 [id number] 4 KHARI COONEY 2023 90 [facility] SELENIUM SULFIDE 1% SHAMPOO USE SMALL AMOUNT TO AFFECTED AREA(S) ONCE A DAY TOPICA L ACTIVE 04/07/2025 [id number] 5 KHARI COONEY 2023 210 [facility] SELENIUM SULFIDE 1% SHAMPOO USE SMALL AMOUNT TO AFFECTED AREA(S) ONCE A DAY TOPICA L DISCONT INUED 04/07/2024 [id number] 4 KHARI COONEY 2022 210 [facility] TRAZODONE HCL 50MG TAB TAKE 1/2 TO 2 TABLETS BY MOUTH AT BEDTIME NEEDED ORAL ACTIVE 02/15/2025 [id number] 5 CASA BARRETT A 2024 180 [facility] Allergies, Adverse Reactions, Alerts Combined list of allergies from Department of Defense and Veterans Affairs facilities. It does not include entries that were removed or entered in error. Substance Category Reaction Severity Reaction type Status Date Reported Comments Source No Known Allergies Drug allergy (disorder) active 03/03/2008 [facility] Immunizations Combined list of available immunizations from the Department of Defense and Veterans Affairs facilities. Immunization Series Date Given Administered By Site Reaction Lot Number CVX Code Drug Apple Thinner Status Comments Source INFLUENZA, SPLIT VIRUS, TRIVALENT, PF 2023 ASIM COOPER RIGHT DELTO ID [id number] complet ed [facility]MINISTE [facility] AT [facility] INFLUENZA, INJECTABLE, QUADRIVALENT, PRESERVATIVE FREE 2022 ASIM COOPER RIGHT DELTO ID [id number] A 150 complet ed ADMINISTE RED AT [facility] INFLUENZA, UNSPECIFIED FORMULATION 2020 88 complet ed [facility] INFLUENZA, UNSPECIFIED FORMULATION 2020 88 complet ed [facility] influenza virus vaccine, split virus (incl. purified surface antigen)-reti red CODE 0 2007 UNK 15 [employer] (SKB) complet ed influenza virus vaccine, split virus (incl. purified surface antigen)- retired CODE DoD anthrax vaccine 3 2007 UNK 24 [employer] [place] (MIP) complet ed anthrax vaccine DoD anthrax vaccine 2 2007 UNK 24 [employer] Vladimir (MIP) complet ed anthrax vaccine DoD anthrax vaccine 1 2007 UNK 24 [employer] [place] (MIP) complet ed anthrax vaccine DoD Cymraes Encephalitis Vaccine SC 3 2006 UNK 39 Merck (MSD) complet ed Cymraes Encephali tis Vaccine SC [facility] influenza virus vaccine, live, attenuated, for intranasal use 0 2006 UNK 111 [employer] (MED) complet ed influenza virus vaccine, live, attenuate d, for intranasa l use DoD Cymraes Encephalitis Vaccine SC 2 2006 UNK 39 Merck (MSD) complet ed Cymraes Encephali tis Vaccine SC DoD Cymraes Encephalitis Vaccine SC 1 2006 [id number] Merck (MSD) complet ed Cymraes Encephali tis Vaccine SC DoD typhoid Vi capsular polysaccharid e vaccine 2 2006 UNK 101 [employer] ([facility]) complet ed typhoid Vi capsular polysacch aride vaccine DoD influenza virus vaccine, split virus (incl. purified surface antigen)-reti red CODE 0 2005 UNK 15 Sanofi Pasteur ([facility]) complet ed influenza virus vaccine, split virus (incl. purified surface antigen)- retired CODE DoD vaccinia (smallpox) vaccine 0 2005 [id number] [facility] ([facility]) complet ed vaccinia (smallpox ) vaccine DoD influenza virus vaccine, unspecified formulation 0 2004 [id number] Other (OTH) complet ed influenza virus vaccine, unspecifi ed formulati on DoD influenza virus vaccine, live, attenuated, for intranasal use 0 2004 [id number] [employer] (PW) complet ed influenza virus vaccine, live, attenuate d, for intranasa l use DoD yellow fever vaccine 0 2004 [id number] Sanofi Pasteur ([facility]) complet ed yellow fever vaccine DoD typhoid Vi capsular polysaccharid e vaccine 1 2004 [id number] Other (OTH) complet ed typhoid Vi capsular polysacch aride vaccine DoD hepatitis B vaccine, adult dosage 3 2004 [id number] 43 Merck (MSD) complet ed hepatitis B vaccine, adult dosage DoD hepatitis A vaccine, adult dosage 2 2004 [id number] Merck (MSD) complet ed hepatitis A vaccine, adult dosage DoD hepatitis A and hepatitis B vaccine 3 2004 Unknown, Provider [id number] [facility] (SKB) complet ed hepatitis A and hepatitis B vaccine DoD tetanus and diphtheria toxoids, adsorbed, preservative free, for adult use (2 Lf of tetanus toxoid and 2 Lf of diphtheria toxoid) 1 2003 Unknown, Provider [id number] Other (OTH) complet ed tetanus and diphtheri a toxoids, adsorbed, preservat munira free, for adult use (2 Lf of tetanus toxoid and 2 Lf of diphtheri a toxoid) DoD poliovirus vaccine, inactivated 1 2003 Unknown, Provider [id number] Other (OTH) complet ed polioviru s vaccine, inactivat ed DoD yellow fever vaccine 1 2003 Unknown, Provider [id number] Other (OTH) complet ed yellow fever vaccine DoD hepatitis B vaccine, adult dosage 2 2003 [id number] 43 Merck (MSD) complet ed hepatitis B vaccine, adult dosage DoD poliovirus vaccine, unspecified formulation 1 2003 [id number] Other (OTH) complet ed polioviru s vaccine, unspecifi ed formulati on DoD hepatitis A and hepatitis B vaccine 2 2003 Unknown, Provider [id number] [employer] (SKB) complet ed hepatitis A and hepatitis B vaccine DoD measles, mumps and rubella virus vaccine 1 2003 Unknown, Provider [id number] Merck (MSD) complet ed measles, mumps and rubella virus vaccine DoD influenza virus vaccine, split virus (incl. purified surface antigen)-reti red CODE 1 2003 15 Other (OTH) complet ed influenza virus vaccine, split virus (incl. purified surface antigen)- retired CODE DoD meningococcal polysaccharid e vaccine (MPSV4) 1 2003 Unknown, Provider [id number] Other (OTH) complet ed meningoco ccal polysacch aride vaccine (MPSV4) DoD pneumococcal polysaccharid e vaccine, 23 valent 1 2003 Unknown, Provider [id number] Merck (MSD) complet ed pneumococ jean-claude polysacch aride vaccine, 23 valent DoD hepatitis B vaccine, adult dosage 1 2003 [id number] 43 Merck (MSD) complet ed hepatitis B vaccine, adult dosage DoD hepatitis A vaccine, adult dosage 1 2003 [id number] 52 Merck (MSD) complet ed hepatitis A vaccine, adult dosage DoD hepatitis A and hepatitis B vaccine 1 2003 Unknown, Provider [id number] 104 [employer] (SKB) complet ed hepatitis A and hepatitis B vaccine DoD Results Combined list of recent chemistry, hematology and other laboratory results from Department of Defense and Veterans Affairs, ranging from 15 months to all on record, depending upon the facility. Order Name Results Value Reference Range Date Interpretation Specimen Comments Source LIPID PANEL (STL) CHOLESTEROL [MASS/VOLUM E] IN SERUM OR PLASMA 208 mg/dL 0 - 200 04/12 H Specimen Type: PLASMA Comment: No hemolysis noted. Ordering Provider: Escobar COONEY Report Released Date/Time: Apr 06, 2024 03:58 PM Reporting Lab: [facility] [address] [place] [phone] Performing Lab: [facility] [address] [place] [phone] [place] [address] [facility] LIPID PANEL (STL) TRIGLYCERID E [MASS/VOLUM E] IN SERUM OR PLASMA 246 mg/dL 0 - 150 04/12 H Specimen Type: PLASMA Comment: No hemolysis noted. Ordering Provider: Escobar COONEY Report Released Date/Time: Apr 06, 2024 03:58 PM Reporting Lab: [place] [address] Performing Lab: [address] [facility] LIPID PANEL (STL) CHOLESTEROL IN LDL [MASS/VOLUM E] IN SERUM OR PLASMA BY CALCULATION 106 mg/dL 04/12 Specimen Type: PLASMA Comment: No hemolysis noted. Ordering Provider: Escobar COONEY Report Released Date/Time: Apr 06, 2024 03:58 PM Reporting Lab: [facility] [address] [place] [address] Performing Lab: [address] [phone] [facility] LIPID PANEL (STL) CHOLESTEROL IN HDL [MASS/VOLUM E] IN SERUM OR PLASMA 53 mg/dL 40 04/12 Specimen Type: PLASMA Comment: No hemolysis noted. Ordering Provider: Escobar COONEY Report Released Date/Time: Apr 06, 2024 03:58 PM Reporting Lab: [facility] [address] [place] [phone] Performing Lab: [address] [phone] [facility] COMPREHENS MUNIRA METABOLIC PANEL CREATININE [MASS/VOLUM E] IN SERUM OR PLASMA 1.02 mg/dL 0.7 - 1.3 04/12 Specimen Type: PLASMA Comment: No hemolysis noted. Ordering Provider: Escobar COONEY Report Released Date/Time: Apr 06, 2024 03:58 PM Reporting Lab: [facility] [address] [place] [phone] Performing Lab: [facility] [address] [place] [phone] [place] [address] [facility]OC COMPREHENS MUNIRA METABOLIC PANEL UREA NITROGEN [MASS/VOLUM E] IN SERUM OR PLASMA 18.5 mg/dL 9.0 - 25.0 04/12 Specimen Type: PLASMA Comment: No hemolysis noted. Ordering Provider: Escobar COONEY Report Released Date/Time: Apr 06, 2024 03:58 PM Reporting Lab: [facility] [address] [place] [phone] Performing Lab: [address] [phone] [place] [address] [facility] COMPREHENS MUNIRA METABOLIC PANEL GLUCOSE [MASS/VOLUM E] IN SERUM OR PLASMA 94 mg/dL 72 - 99 04/12 Specimen Type: PLASMA Comment: No hemolysis noted. Ordering Provider: Escobar COONEY Report Released Date/Time: Apr 06, 2024 03:58 PM Reporting Lab: [facility] [address] [place] [phone] Performing Lab: [address] [phone] [place] [address] [facility] COMPREHENS MUNIRA METABOLIC PANEL SODIUM [MOLES/VOLU ME] IN SERUM OR PLASMA 141 meq/L 136 - 145 04/12 Specimen Type: PLASMA Comment: No hemolysis noted. Ordering Provider: Escobar COONEY Report Released Date/Time: Apr 06, 2024 03:58 PM Reporting Lab: [facility] [address] [place] [phone] Performing Lab: [address] [phone] [facility] COMPREHENS MUNIRA METABOLIC PANEL POTASSIUM [MOLES/VOLU ME] IN SERUM OR PLASMA 4.8 meq/L 3.5 - 5 04/12 Specimen Type: PLASMA Comment: No hemolysis noted. Ordering Provider: Escobar COONEY Report Released Date/Time: Apr 06, 2024 03:58 PM Reporting Lab: [facility] [address] [place] [phone] Performing Lab: [address] [phone] [place] [address] [facility] COMPREHENS MUNIRA METABOLIC PANEL CHLORIDE [MOLES/VOLU ME] IN SERUM OR PLASMA 105 meq/L 98 - 107 04/12 Specimen Type: PLASMA Comment: No hemolysis noted. Ordering Provider: Escobar COONEY Report Released Date/Time: Apr 06, 2024 03:58 PM Reporting Lab: [address] [phone] Performing Lab: [address] [phone] [place] [address] [facility] COMPREHENS MUNIRA METABOLIC PANEL CARBON DIOXIDE, TOTAL [MOLES/VOLU ME] IN SERUM OR PLASMA 26 meq/L 22 - 31 04/12 Specimen Type: PLASMA Comment: No hemolysis noted. Ordering Provider: Escobar COONEY Report Released Date/Time: Apr 06, 2024 03:58 PM Reporting Lab: [address] [phone] Performing Lab: [address] [phone] [place] [address] [facility] COMPREHENS MUNIRA METABOLIC PANEL CALCIUM [MASS/VOLUM E] IN SERUM OR PLASMA 9.6 mg/dL 8.4 - 10.4 04/12 Specimen Type: PLASMA Comment: No hemolysis noted. Ordering Provider: Escobar COONEY Report Released Date/Time: Apr 06, 2024 03:58 PM Reporting Lab: [address] [phone] Performing Lab: [address] [phone] [facility] COMPREHENS MUNIRA METABOLIC PANEL PROTEIN [MASS/VOLUM E] IN SERUM OR PLASMA 7.5 g/dL 6 - 8.6 04/12 Specimen Type: PLASMA Comment: No hemolysis noted. Ordering Provider: Escobar COONEY Report Released Date/Time: Apr 06, 2024 03:58 PM Reporting Lab: [address] [address] Performing Lab: [address] [phone] [facility] COMPREHENS MUNIRA METABOLIC PANEL ALBUMIN [MASS/VOLUM E] IN SERUM OR PLASMA 4.5 g/dL 3.4 - 5 04/12 Specimen Type: PLASMA Comment: No hemolysis noted. Ordering Provider: Escobar COONEY Report Released Date/Time: Apr 06, 2024 03:58 PM Reporting Lab: [address] [phone] Performing Lab: [address] [phone] [facility] COMPREHENS MUNIRA METABOLIC PANEL BILIRUBIN.T OTAL [MASS/VOLUM E] IN SERUM OR PLASMA 0.4 mg/dL 0.2 - 1.2 04/12 Specimen Type: PLASMA Comment: No hemolysis noted. Ordering Provider: Escobar COONEY Report Released Date/Time: Apr 06, 2024 03:58 PM Reporting Lab: [address] [phone] Performing Lab: [address] [phone] [facility] COMPREHENS MUNIRA METABOLIC PANEL ALKALINE PHOSPHATASE [ENZYMATIC ACTIVITY/VO LUME] IN SERUM OR PLASMA 79 U/L 40 - 150 04/12 Specimen Type: PLASMA Comment: No hemolysis noted. Ordering Provider: Escobar COONEY Report Released Date/Time: Apr 06, 2024 03:58 PM Reporting Lab: [address] [phone] Performing Lab: [address] [phone] [facility] COMPREHENS MUNIRA METABOLIC PANEL ASPARTATE AMINOTRANSF ERASE [ENZYMATIC ACTIVITY/VO LUME] IN SERUM OR PLASMA 17 U/L 5 - 34 04/12 Specimen Type: PLASMA Comment: No hemolysis noted. Ordering Provider: Escobar COONEY Report Released Date/Time: Apr 06, 2024 03:58 PM Reporting Lab: [place] [address] [facility] [phone] Performing Lab: [address] [phone] [facility] COMPREHENS MUNIRA METABOLIC PANEL ALANINE AMINOTRANSF ERASE [ENZYMATIC ACTIVITY/VO LUME] IN SERUM OR PLASMA 14 U/L 8 - 40 04/12 Specimen Type: PLASMA Comment: No hemolysis noted. Ordering Provider: Escobar COONEY Report Released Date/Time: Apr 06, 2024 03:58 PM Reporting Lab: [address] [phone] Performing Lab: [address] [phone] [place] [address] [facility]OC COMPREHENS MUNIRA METABOLIC PANEL GLOMERULAR FILTRATION RATE/1.73 SQ M.PREDICTED [VOLUME RATE/AREA] IN SERUM, PLASMA OR BLOOD BY CREATININE- BASED FORMULA (CKD-EPI 2020) 96.5 60 04/12 Specimen Type: PLASMA Comment: No hemolysis noted. Ordering Provider: Escobar COONEY Report Released Date/Time: Apr 06, 2024 03:58 PM Reporting Lab: [facility] [address] [place] [phone] Performing Lab: [phone] [place] [address] [facility] HGA1C HEMOGLOBIN A1C/HEMOGLO BIN.TOTAL IN BLOOD 5.3 4.0 - 6.0 04/12 Specimen Type: BLOOD No comment entered. Ordering Provider: Escobar COONEY Report Released Date/Time: Apr 06, 2024 03:58 PM Reporting Lab: [address] [address] Performing Lab: [facility] [address] [place] [phone] [facility] CBC LEUKOCYTES [#/VOLUME] IN BLOOD BY AUTOMATED COUNT 8.2 10*3/u L 3.6 - 11.2 04/12 Specimen Type: BLOOD No comment entered. Ordering Provider: Escobar COONEY Report Released Date/Time: Apr 06, 2024 03:58 PM Reporting Lab: [address] [phone] Performing Lab: [address] [phone] [facility] CBC ERYTHROCYTE S [#/VOLUME] IN BLOOD BY AUTOMATED COUNT 4.76 10*6/u L 4.10 - 5.70 04/12 Specimen Type: BLOOD No comment entered. Ordering Provider: Escobar COONEY Report Released Date/Time: Apr 06, 2024 03:58 PM Reporting Lab: [address] [phone] Performing Lab: [address] [address] [facility] CBC HEMOGLOBIN [MASS/VOLUM E] IN BLOOD 14.9 g/dL 13.1 - 16.8 04/12 Specimen Type: BLOOD No comment entered. Ordering Provider: Escobar COONEY Report Released Date/Time: Apr 06, 2024 03:58 PM Reporting Lab: [address] [address] Performing Lab: [address] [address] [facility] CBC HEMATOCRIT [VOLUME FRACTION] OF BLOOD 43.6 38.2 - 48.4 04/12 Specimen Type: BLOOD No comment entered. Ordering Provider: Escobar COONEY Report Released Date/Time: Apr 06, 2024 03:58 PM Reporting Lab: [address] [address] Performing Lab: [place] [phone] [facility] CBC MCV [ENTITIC VOLUME] BY AUTOMATED COUNT 91.6 fL 80.0 - 100.0 04/12 Specimen Type: BLOOD No comment entered. Ordering Provider: Escobar COONEY Report Released Date/Time: Apr 06, 2024 03:58 PM Reporting Lab: [place] [phone] Performing Lab: [address] [phone] [place] [address] [facility] CBC MCH [ENTITIC MASS] BY AUTOMATED COUNT 31.3 pg 27.0 - 34.0 04/12 Specimen Type: BLOOD No comment entered. Ordering Provider: Escobar COONEY Report Released Date/Time: Apr 06, 2024 03:58 PM Reporting Lab: [place] [address] Performing Lab: [address] [facility] CBC MCHC [MASS/VOLUM E] BY AUTOMATED COUNT 34.2 g/dL 33.0 - 36.0 04/12 Specimen Type: BLOOD No comment entered. Ordering Provider: Escobar COONEY Report Released Date/Time: Apr 06, 2024 03:58 PM Reporting Lab: [place] [phone] Performing Lab: [address] [phone] [place] [address] [facility] CBC PLATELETS [#/VOLUME] IN BLOOD BY AUTOMATED COUNT 263 10*3/u L 150 - 400 04/12 Specimen Type: BLOOD No comment entered. Ordering Provider: Escobar COONEY Report Released Date/Time: Apr 06, 2024 03:58 PM Reporting Lab: [place] [address] Performing Lab: [address] [phone] [place] [address] [facility] CBC PLATELET MEAN VOLUME [ENTITIC VOLUME] IN BLOOD BY AUTOMATED COUNT 10.6 fL 7.5 - 11.2 04/12 Specimen Type: BLOOD No comment entered. Ordering Provider: Escobar COONEY Report Released Date/Time: Apr 06, 2024 03:58 PM Reporting Lab: [facility] [address] [place] [phone] Performing Lab: [phone] [place] [address] [facility]OC CBC ERYTHROCYTE DISTRIBUTIO N WIDTH [RATIO] BY AUTOMATED COUNT 12.3 11.8 - 15.1 04/12 Specimen Type: BLOOD No comment entered. Ordering Provider: Escobar COONEY Report Released Date/Time: Apr 06, 2024 03:58 PM Reporting Lab: [facility] [address] [place] [phone] Performing Lab: [place] [phone] [facility] CBC LYMPHOCYTES /100 LEUKOCYTES IN BLOOD BY AUTOMATED COUNT 41 04/12 Specimen Type: BLOOD No comment entered. Ordering Provider: Escobar COONEY Report Released Date/Time: Apr 06, 2024 03:58 PM Reporting Lab: [facility] [address] [place] [phone] Performing Lab: [facility] [address] [place] [phone] [place] [address] [facility]OC CBC MONOCYTES/1 00 LEUKOCYTES IN BLOOD BY AUTOMATED COUNT 7 04/12 Specimen Type: BLOOD No comment entered. Ordering Provider: Escobar COONEY Report Released Date/Time: Apr 06, 2024 03:58 PM Reporting Lab: [facility] [address] [place] [phone] Performing Lab: [facility] [address] [place] [address] [facility] CBC NEUTROPHILS /100 LEUKOCYTES IN BLOOD BY AUTOMATED COUNT 47 04/12 Specimen Type: BLOOD No comment entered. Ordering Provider: Escobar COONEY Report Released Date/Time: Apr 06, 2024 03:58 PM Reporting Lab: [facility] [address] [place] [phone] Performing Lab: [address] [address] [facility] CBC EOSINOPHILS /100 LEUKOCYTES IN BLOOD BY AUTOMATED COUNT 4 04/12 Specimen Type: BLOOD No comment entered. Ordering Provider: Escobar COONEY Report Released Date/Time: Apr 06, 2024 03:58 PM Reporting Lab: [address] [address] Performing Lab: [address] [phone] [facility] CBC BASOPHILS/1 00 LEUKOCYTES IN BLOOD BY AUTOMATED COUNT 1 04/12 Specimen Type: BLOOD No comment entered. Ordering Provider: Escobar COONEY Report Released Date/Time: Apr 06, 2024 03:58 PM Reporting Lab: [address] [address] Performing Lab: [address] [address] [facility] CBC LYMPHOCYTES [#/VOLUME] IN BLOOD BY AUTOMATED COUNT 3.32 10*3/u L 0.77 - 4.50 04/12 Specimen Type: BLOOD No comment entered. Ordering Provider: Escobar COONEY Report Released Date/Time: Apr 06, 2024 03:58 PM Reporting Lab: [address] [address] Performing Lab: [address] [phone] [facility] CBC MONOCYTES [#/VOLUME] IN BLOOD BY AUTOMATED COUNT 0.58 10*3/u L 0.19 - 0.80 04/12 Specimen Type: BLOOD No comment entered. Ordering Provider: Escobar COONEY Report Released Date/Time: Apr 06, 2024 03:58 PM Reporting Lab: [address] [address] Performing Lab: [address] [address] [facility] CBC NEUTROPHILS [#/VOLUME] IN BLOOD BY AUTOMATED COUNT 3.82 10*3/u L 2.10 - 8.00 04/12 Specimen Type: BLOOD No comment entered. Ordering Provider: Escobar COONEY Report Released Date/Time: Apr 06, 2024 03:58 PM Reporting Lab: [place] [address] Performing Lab: [place] [phone] [facility] CBC EOSINOPHILS [#/VOLUME] IN BLOOD BY AUTOMATED COUNT 0.36 10*3/u L 0.00 - 0.60 04/12 Specimen Type: BLOOD No comment entered. Ordering Provider: Escobar COONEY Report Released Date/Time: Apr 06, 2024 03:58 PM Reporting Lab: [place] [address] Performing Lab: [address] [facility] CBC BASOPHILS [#/VOLUME] IN BLOOD BY AUTOMATED COUNT 0.05 10*3/u L 0.00 - 0.20 04/12 Specimen Type: BLOOD No comment entered. Ordering Provider: Escobar COONEY Report Released Date/Time: Apr 06, 2024 03:58 PM Reporting Lab: [place] [address] Performing Lab: [place] [phone] [facility] VITAMIN D, 25-HYDROXY 25-HYDROXYV ITAMIN D3 [MASS/VOLUM E] IN SERUM OR PLASMA 42.6 ng/mL 30 - 96 04/12 Specimen Type: SERUM No comment entered. Ordering Provider: Escobar COONEY Report Released Date/Time: Apr 06, 2024 03:58 PM Reporting Lab: [place] [address] Performing Lab: [place] [address] [facility] [place] [address] [facility] TSH W/ REFLEX FT4 (STL) THYROTROPIN [UNITS/VOLU ME] IN SERUM OR PLASMA 1.183 u[IU]/ mL 0.47 - 5 04/12 Specimen Type: PLASMA No comment entered. Ordering Provider: Escobar COONEY Report Released Date/Time: Apr 06, 2024 03:58 PM Reporting Lab: [address] [phone] Performing Lab: [address] [address] [facility] LIPID PANEL (STL) CHOLESTEROL [MASS/VOLUM E] IN SERUM OR PLASMA 181 mg/dL 0 - 200 04/07 Specimen Type: PLASMA Comment: No hemolysis noted. Ordering Provider: [place] MARTINEZ Report Released Date/Time: Mar 25, 2022 10:08 AM Reporting Lab: [address] [phone] Performing Lab: [address] [address] [facility] LIPID PANEL (STL) TRIGLYCERID E [MASS/VOLUM E] IN SERUM OR PLASMA 124 mg/dL 0 - 150 04/07 Specimen Type: PLASMA Comment: No hemolysis noted. Ordering Provider: [place] D[place] MARTINEZ Report Released Date/Time: Mar 25, 2022 10:08 AM Reporting Lab: [address] [address] Performing Lab: [address] [address] [facility] LIPID PANEL (STL) CHOLESTEROL IN LDL [MASS/VOLUM E] IN SERUM OR PLASMA BY CALCULATION 102 mg/dL 04/07 Specimen Type: PLASMA Comment: No hemolysis noted. Ordering Provider: MAR[place] DOLOR[place] MARTINEZ Report Released Date/Time: Mar 25, 2022 10:08 AM Reporting Lab: [address] [place] [address] Performing Lab: [facility] [address] [facility] [place] [address] [facility] LIPID PANEL (STL) CHOLESTEROL IN HDL [MASS/VOLUM E] IN SERUM OR PLASMA 54 mg/dL 40 04/07 Specimen Type: PLASMA Comment: No hemolysis noted. Ordering Provider: [place] DOLORES MARTINEZ Report Released Date/Time: Mar 25, 2022 10:08 AM Reporting Lab: [place] [address] [facility] [place] [address] Performing Lab: [address] [phone] [facility] COMPREHENS [place] METABOLIC PANEL CREATININE [MASS/VOLUM E] IN SERUM OR PLASMA 1.22 mg/dL 0.7 - 1.3 04/07 Specimen Type: PLASMA Comment: No hemolysis noted. Ordering Provider: [place] DOLOR[place] MARTINEZ Report Released Date/Time: Mar 25, 2022 10:08 AM Reporting Lab: [place] [address] [facility] [address] Performing Lab: [place] [address] [facility] [place] [address] [facility] COMPREHENS [place] METABOLIC PANEL UREA NITROGEN [MASS/VOLUM E] IN SERUM OR PLASMA 15.0 mg/dL 9.0 - 25.0 04/07 Specimen Type: PLASMA Comment: No hemolysis noted. Ordering Provider: [place] D[place] MARTINEZ Report Released Date/Time: Mar 25, 2022 10:08 AM Reporting Lab: [place] [address] [facility] [place] [address] Performing Lab: [address] [address] [facility] COMPREH[facility] [place] METABOLIC PANEL GLUCOSE [MASS/VOLUM E] IN SERUM OR PLASMA 92 mg/dL 72 - 99 04/07 Specimen Type: PLASMA Comment: No hemolysis noted. Ordering Provider: [place] D[place] MARTINEZ Report Released Date/Time: Mar 25, 2022 10:08 AM Reporting Lab: [facility] [address] [facility] [address] Performing Lab: [facility] [address] [facility] [place] [address] [facility] COMPREHENS [place] METABOLIC PANEL SODIUM [MOLES/VOLU ME] IN SERUM OR PLASMA 142 meq/L 136 - 145 04/07 Specimen Type: PLASMA Comment: No hemolysis noted. Ordering Provider: [place] D[place] MARTINEZ Report Released Date/Time: Mar 25, 2022 10:08 AM Reporting Lab: [facility] [address] [facility] [address] Performing Lab: [facility] [address] [facility] [place] [address] [facility] COMPREH[facility] [place] METABOLIC PANEL POTASSIUM [MOLES/VOLU ME] IN SERUM OR PLASMA 4.8 meq/L 3.5 - 5 04/07 Specimen Type: PLASMA Comment: No hemolysis noted. Ordering Provider: [place] DOLOR[place] MARTINEZ Report Released Date/Time: Mar 25, 2022 10:08 AM Reporting Lab: [facility] [address] [facility] [place] [address] Performing Lab: [facility] [address] [facility] [address] [facility] COMPREHENS [place] METABOLIC PANEL CHLORIDE [MOLES/VOLU ME] IN SERUM OR PLASMA 105 meq/L 98 - 107 04/07 Specimen Type: PLASMA Comment: No hemolysis noted. Ordering Provider: [place] D[place] MARTINEZ Report Released Date/Time: Mar 25, 2022 10:08 AM Reporting Lab: [facility] [address] [facility] [place] [address] Performing Lab: [facility] [address] [facility] [address] [facility] COMPREHENS [place] METABOLIC PANEL CARBON DIOXIDE, TOTAL [MOLES/VOLU ME] IN SERUM OR PLASMA 28 meq/L 22 - 31 04/07 Specimen Type: PLASMA Comment: No hemolysis noted. Ordering Provider: [place] DOLOR[place] MARTINEZ Report Released Date/Time: Mar 25, 2022 10:08 AM Reporting Lab: [facility] [address] [facility] [place] [address] Performing Lab: [facility] [address] [facility] [place] [address] [facility] COMPREHENS [place] METABOLIC PANEL CALCIUM [MASS/VOLUM E] IN SERUM OR PLASMA 9.7 mg/dL 8.4 - 10.4 04/07 Specimen Type: PLASMA Comment: No hemolysis noted. Ordering Provider: [place] D[place] MARTINEZ Report Released Date/Time: Mar 25, 2022 10:08 AM Reporting Lab: [facility] [address] [facility] [place] [address] Performing Lab: [facility] [address] [facility] [place] [address] [facility] COMPREHENS [place] METABOLIC PANEL PROTEIN [MASS/VOLUM E] IN SERUM OR PLASMA 7.4 g/dL 6 - 8.6 04/07 Specimen Type: PLASMA Comment: No hemolysis noted. Ordering Provider: [place] D[place] MARTINEZ Report Released Date/Time: Mar 25, 2022 10:08 AM Reporting Lab: [facility] [address] [facility] [address] Performing Lab: [facility] [address] [facility] [place] [address] [facility] COMPREHENS [place] METABOLIC PANEL ALBUMIN [MASS/VOLUM E] IN SERUM OR PLASMA 4.4 g/dL 3.4 - 5 04/07 Specimen Type: PLASMA Comment: No hemolysis noted. Ordering Provider: [place] D[place] MARTINEZ Report Released Date/Time: Mar 25, 2022 10:08 AM Reporting Lab: [facility] [address] [facility] [address] Performing Lab: [facility] [address] [facility] [place] [address] [facility] COMPREHENS [place] METABOLIC PANEL BILIRUBIN.T OTAL [MASS/VOLUM E] IN SERUM OR PLASMA 0.5 mg/dL 0.2 - 1.2 04/07 Specimen Type: PLASMA Comment: No hemolysis noted. Ordering Provider: [place] MARTINEZ Report Released Date/Time: Mar 25, 2022 10:08 AM Reporting Lab: [address] [address] Performing Lab: [address] [phone] [place] [address] COMPREHENS [place] METABOLIC PANEL ALKALINE PHOSPHATASE [ENZYMATIC ACTIVITY/VO LUME] IN SERUM OR PLASMA 67 U/L 40 - 150 04/07 Specimen Type: PLASMA Comment: No hemolysis noted. Ordering Provider: [place] D[place] MARTINEZ Report Released Date/Time: Mar 25, 2022 10:08 AM Reporting Lab: [address] [address] Performing Lab: [address] [phone] [place] [address] COMPREHENS [place] METABOLIC PANEL ASPARTATE AMINOTRANSF ERASE [ENZYMATIC ACTIVITY/VO LUME] IN SERUM OR PLASMA 21 U/L 5 - 34 04/07 Specimen Type: PLASMA Comment: No hemolysis noted. Ordering Provider: [place] D[place] MARTINEZ Report Released Date/Time: Mar 25, 2022 10:08 AM Reporting Lab: [address] [address] Performing Lab: [address] [address] [facility] COMPREHENS [place] METABOLIC PANEL ALANINE AMINOTRANSF ERASE [ENZYMATIC ACTIVITY/VO LUME] IN SERUM OR PLASMA 15 U/L 8 - 40 04/07 Specimen Type: PLASMA Comment: No hemolysis noted. Ordering Provider: [place] D[place] MARTINEZ Report Released Date/Time: Mar 25, 2022 10:08 AM Reporting Lab: [address] [address] Performing Lab: [address] [place] [address] [facility] COMPREHENS [place] METABOLIC PANEL GLOMERULAR FILTRATION RATE/1.73 SQ M.PREDICTED [VOLUME RATE/AREA] IN SERUM, PLASMA OR BLOOD BY CREATININE- BASED FORMULA (CKD-EPI 2020) 78.3 60 04/07 Specimen Type: PLASMA Comment: No hemolysis noted. Ordering Provider: [place] D[place] MARTINEZ Report Released Date/Time: Mar 25, 2022 10:08 AM Reporting Lab: [place] [phone] Performing Lab: [address] HGA1C HEMOGLOBIN A1C/HEMOGLO BIN.TOTAL IN BLOOD 5.0 4.0 - 6.0 04/07 Specimen Type: BLOOD No comment entered. Ordering Provider: Escobar COONEY Report Released Date/Time: Apr 07, 2023 01:49 PM Reporting Lab: [facility] [address] [place] [phone] Performing Lab: [address] [phone] [facility] CBC LEUKOCYTES [#/VOLUME] IN BLOOD BY AUTOMATED COUNT 7.5 10*3/u L 3.6 - 11.2 04/07 Specimen Type: BLOOD No comment entered. Ordering Provider: [place] DOLOR[place] MARTINEZ Report Released Date/Time: Mar 25, 2022 10:08 AM Reporting Lab: [facility] [facility] [address] Performing Lab: [facility] [address] [facility] [phone] [facility] CBC ERYTHROCYTE S [#/VOLUME] IN BLOOD BY AUTOMATED COUNT 4.68 10*6/u L 4.10 - 5.70 04/07 Specimen Type: BLOOD No comment entered. Ordering Provider: [place] D[place] MARTINEZ Report Released Date/Time: Mar 25, 2022 10:08 AM Reporting Lab: [facility] [address] Performing Lab: [facility] [place] [phone] [facility] CBC HEMOGLOBIN [MASS/VOLUM E] IN BLOOD 14.3 g/dL 13.1 - 16.8 04/07 Specimen Type: BLOOD No comment entered. Ordering Provider: [place] D[place] MARTINEZ Report Released Date/Time: Mar 25, 2022 10:08 AM Reporting Lab: [facility] [place] [address] Performing Lab: [facility] CBC HEMATOCRIT [VOLUME FRACTION] OF BLOOD 43.9 38.2 - 48.4 04/07 Specimen Type: BLOOD No comment entered. Ordering Provider: [place] D[place] MARTINEZ Report Released Date/Time: Mar 25, 2022 10:08 AM Reporting Lab: [facility] [place] [address] Performing Lab: [facility] DIVISION CBC MCV [ENTITIC VOLUME] BY AUTOMATED COUNT 93.8 fL 80.0 - 100.0 04/07 Specimen Type: BLOOD No comment entered. Ordering Provider: [place] D[place] MARTINEZ Report Released Date/Time: Mar 25, 2022 10:08 AM Reporting Lab: [facility] [place] [address] Performing Lab: [facility] DIVISION CBC MCH [ENTITIC MASS] BY AUTOMATED COUNT 30.6 pg 27.0 - 34.0 04/07 Specimen Type: BLOOD No comment entered. Ordering Provider: [place] DOLOR[place] MARTINEZ Report Released Date/Time: Mar 25, 2022 10:08 AM Reporting Lab: [facility] [place] [phone] Performing Lab: [facility] [phone] [facility] CBC MCHC [MASS/VOLUM E] BY AUTOMATED COUNT 32.6 g/dL 33.0 - 36.0 04/07 L Specimen Type: BLOOD No comment entered. Ordering Provider: [place] DOLOR[place] MARTINEZ Report Released Date/Time: Mar 25, 2022 10:08 AM Reporting Lab: [facility] [place] [address] Performing Lab: [facility] DIVISION CBC PLATELETS [#/VOLUME] IN BLOOD BY AUTOMATED COUNT 238 10*3/u L 150 - 400 04/07 Specimen Type: BLOOD No comment entered. Ordering Provider: [place] D[place] MARTINEZ Report Released Date/Time: Mar 25, 2022 10:08 AM Reporting Lab: [facility] [place] [address] Performing Lab: [facility] DIVISION CBC PLATELET MEAN VOLUME [ENTITIC VOLUME] IN BLOOD BY AUTOMATED COUNT 11.0 fL 7.5 - 11.2 04/07 Specimen Type: BLOOD No comment entered. Ordering Provider: [place] DOLOR[place] MARTINEZ Report Released Date/Time: Mar 25, 2022 10:08 AM Reporting Lab: [facility] [place] [address] Performing Lab: [facility] DIVISION CBC ERYTHROCYTE DISTRIBUTIO N WIDTH [RATIO] BY AUTOMATED COUNT 12.9 11.8 - 15.1 04/07 Specimen Type: BLOOD No comment entered. Ordering Provider: [place] DOLOR[place] MARTINEZ Report Released Date/Time: Mar 25, 2022 10:08 AM Reporting Lab: [facility] [address] Performing Lab: [facility] [phone] [place] [address] DIVISION CBC LYMPHOCYTES /100 LEUKOCYTES IN BLOOD BY AUTOMATED COUNT 36 04/07 Specimen Type: BLOOD No comment entered. Ordering Provider: [place] DOLOR[place] MARTINEZ Report Released Date/Time: Mar 25, 2022 10:08 AM Reporting Lab: [facility] [address] Performing Lab: [facility] [phone] DIVISION CBC MONOCYTES/1 00 LEUKOCYTES IN BLOOD BY AUTOMATED COUNT 8 04/07 Specimen Type: BLOOD No comment entered. Ordering Provider: [place]IA DOLORES MARTINEZ Report Released Date/Time: Mar 25, 2022 10:08 AM Reporting Lab: [facility] [address] Performing Lab: [facility] [phone] DIVISION CBC NEUTROPHILS /100 LEUKOCYTES IN BLOOD BY AUTOMATED COUNT 53 04/07 Specimen Type: BLOOD No comment entered. Ordering Provider: MARIA DOLORES MARTINEZ Report Released Date/Time: Mar 25, 2022 10:08 AM Reporting Lab: [facility] [address] Performing Lab: [facility] [phone] DIVISION CBC EOSINOPHILS /100 LEUKOCYTES IN BLOOD BY AUTOMATED COUNT 2 04/07 Specimen Type: BLOOD No comment entered. Ordering Provider: MARIA DOLORES MARTINEZ Report Released Date/Time: Mar 25, 2022 10:08 AM Reporting Lab: [facility] [address] Performing Lab: [facility] [address] DIVISION CBC BASOPHILS/1 00 LEUKOCYTES IN BLOOD BY AUTOMATED COUNT 1 04/07 Specimen Type: BLOOD No comment entered. Ordering Provider: MARIA DOLORES MARTINEZ Report Released Date/Time: Mar 25, 2022 10:08 AM Reporting Lab: [facility] [place] [address] Performing Lab: [facility] DIVISION CBC LYMPHOCYTES [#/VOLUME] IN BLOOD BY AUTOMATED COUNT 2.68 10*3/u L 0.77 - 4.50 04/07 Specimen Type: BLOOD No comment entered. Ordering Provider: MARIA DOLORES MARTINEZ Report Released Date/Time: Mar 25, 2022 10:08 AM Reporting Lab: [facility] [place] [address] Performing Lab: [facility] DIVISION CBC MONOCYTES [#/VOLUME] IN BLOOD BY AUTOMATED COUNT 0.57 10*3/u L 0.19 - 0.80 04/07 Specimen Type: BLOOD No comment entered. Ordering Provider: MARIA DOLORES MARTINEZ Report Released Date/Time: Mar 25, 2022 10:08 AM Reporting Lab: [facility] [place] [address] Performing Lab: [facility] DIVISION CBC NEUTROPHILS [#/VOLUME] IN BLOOD BY AUTOMATED COUNT 4.00 10*3/u L 2.10 - 8.00 04/07 Specimen Type: BLOOD No comment entered. Ordering Provider: MARIA DOLORES MARTINEZ Report Released Date/Time: Mar 25, 2022 10:08 AM Reporting Lab: [facility] [place] [address] Performing Lab: [facility] [address] [facility] CBC EOSINOPHILS [#/VOLUME] IN BLOOD BY AUTOMATED COUNT 0.18 10*3/u L 0.00 - 0.60 04/07 Specimen Type: BLOOD No comment entered. Ordering Provider: MARIA DOLORES MARTINEZ Report Released Date/Time: Mar 25, 2022 10:08 AM Reporting Lab: [facility] [address] Performing Lab: [facility] [phone] [place] [address] DIVISION CBC BASOPHILS [#/VOLUME] IN BLOOD BY AUTOMATED COUNT 0.05 10*3/u L 0.00 - 0.20 04/07 Specimen Type: BLOOD No comment entered. Ordering Provider: MARIA DOLORES MARTINEZ Report Released Date/Time: Mar 25, 2022 10:08 AM Reporting Lab: [facility] [address] Performing Lab: [facility] [phone] DIVISION Vital Signs Combined list of inpatient and outpatient Vital Signs from Department of Defense and Veterans Affairs, ranging from 12 months to all on record, depending upon the facility. Vital Sign Value Date Comments Source SYSTOLIC BLOOD PRESSURE 112 04/06/2024 14:38:48 [facility] DIASTOLIC BLOOD PRESSURE 71 04/06/2024 14:38:48 [facility] PULSE OXIMETRY 97 04/06/2024 14:38:48 [facility] WEIGHT 241 04/06/2024 14:38:48 [facility] BMI 35 kg/m2 04/06/2024 14:38:48 [facility] PAIN 3 04/06/2024 14:38:48 [facility] TEMPERATURE 98 04/06/2024 14:38:48 [facility] PULSE 60 04/06/2024 14:38:48 [facility] RESPIRATION 20 04/06/2024 14:38:48 [facility] Encounters Combined list of: 1) Encounters from Department of Veterans Affairs facilities going backup to the last 18 months, not all [facility] inpatient encounters are included; 2) Encounters from the Department of Defense facilities going backup to 280 months. Location Location Details Encounter Type Encounter Number Reason For Visit Attending Provider ADM Date DC Date Status Disposition Source [place] OUTPATIENT [id number] knee pain JOSEYOVANNY HALL [facility] 07/19 [facility] [place] [place] [place]) OUTPAT[place] [id number] L KNEE PAIN YOVANNY GARCIA [facility] 07/25 Released with Work/Duty Limitations [facility] [place]) OUT[place] [id number] LF KNEE PAIN NINFA GOODRICH Adeel 07/26 Released w/o Limitations [place] OUTPATIENT [id number] L KNEE PAIN MAGEN HINTON 07/27 [facility] Limitations [facility] [place] [place] OUTPAT[place] [id number] discuss mobex referra l AHMET JOVAN W 08/01 Released with Work/Duty Limitations [place] OUT[place] [id number] TORN ACL JOVAN LEO 08/06 Released with Work/Duty Limitations [place] [id number] L ACL tear... 6 months ago JIN MCDONALD 08/22 [facility]itations [facility] [place] [place] OUT[place] [id number] L MMT GABY ANDERS 08/27 Released with Work/Duty Limitations [place] [place] OUT[place] [id number] pre op appt for Left Knee Arthros copy, medial meniscu s repair JIN MCDONALD 08/28 Released w/o Limitations [place]) [place] [facility]) OUTPATIENT [id number] issued crutche s and instruc gisela pt on proper crutch ambulat ion JOSE CASTILLO 08/28 Released w/o Limitations [place]) [place]) OUTPATIENT [id number] GABY ANDERS 10/11 Released w/o Limitations [place] [place]) OUTPATIENT [id number] f/u meniscu s repair JIN MCDONALD 10/17 Released [place]) OUTPATIENT [id number] zhen ZHOU QUIÑONEZ Joel 12/05 Released w/o Limitations [facility] Feldman([facility]) [facility]) OUTPATIENT [id number] [facility] [place] LEIWS Edward 12/18 [facility]ased [facility] Limitations [facility]) [place]) OUTPATIENT [id number] GABY ANDERS 12/24 Released w/o Limitations [place] [facility] ) [facility](Op tometry Cln) OUTPATIENT [id number] WYATT Barnes 07/26 Released w/o Limitations [facility]( Optomet ry Cln) [facility](Au diology Cln) OUTPATIENT [id number] LILIANA BRIAN 01/23 Released w/o Limitations [facility]( Audiolo gy Cln) [facility](Au diology Cln) OUTPATIENT [id number] LILIANA BRIAN 10/14 Released w/o Limitations [facility]( Audiolo gy Cln) [facility](Op tometry Cln) OUTPATIENT [id number] elton WYATT GARCIA RAVINDRA 01/30 Released w/o Limitations [facility]( Optomet ry Cln) [facility](Op tometry Cln) OUTPATIENT [id number] visual field WYATT GARCIA RAVINDRA 02/04 Released w/o Limitations [facility]( Optomet ry Cln) [facility](Au diology Cln) OUTPATIENT [id number] LILIANA BRIAN 11/04 Released w/o Limitations [facility]( Audiolo gy Cln) [facility](Im mediate Care Cln) OUTPATIENT [id number] RT ANKLE SWOLLEN MARY, FARRAH A 12/03 Released w/o Limitations [facility]( Immedia te Care Cln) [facility](Oc cupationa l Medicine Cln) OUTPATIENT [id number] ANGELICA BUTLER 03/03 Released w/o Limitations [facility]( Occupat ional Medicin e Cln) [facility](Pr imary Care Cln) OUTPATIENT [id number] ROSS Erwin 03/23 Released w/o Limitations [facility]( Primary Care Cln) [facility](Pr imary Care Cln) OUTPATIENT [id number] ROSS Erwin 03/25 Released w/o Limitations [facility]( Primary Care Cln) [facility] OUTPATIENT [id number] 08/29 Released w/o Limitations [facility](Op hthalmolo gy Clinic) OUTPATIENT [id number] L superio r lateral vision loss ZOE SHIPLEY 10/03 Released w/o Limitations [facility]( Ophthal mology Clinic) [facility]([place] OUTPATIENT [id number] dizzine ss BRITTANIE CRAFT 10/13 Released with Work/Duty Limitations [facility]( [place]) [facility] Outpatient Encounter [id number] BRAVO CARVAJAL 09/[address] [facility] Outpatient Encounter [id number] DANIEL FRIEND 10/[address] [facility] Outpatient Encounter [id number] BRAVO CARVAJAL 10/[address] [facility] Outpatient Encounter [id number] 11/[address] [facility] Outpatient Encounter [id number] 12/[address] [facility] HEARING AID REPAIR/MOD IFYING [id number] [id number] Diagnos is: ICD-10- CM H90.3 Sensori neural hearing loss, bilater al CASEY GARCIA 12/18 [facility] OFFICE O/P EST MOD 30 MIN [id number] [id number] Diagnos is: ICD-10- CM M54.50 Low back pain, unspeci jesse COONEY,Escobar ODD 04/06 [facility] Outpatient Encounter [id number] 04/[address] [facility] Outpatient Encounter [id number] YOSELIN CALVLILO SKYLAR A 04/10 [facility] Outpatient Encounter [id number] YOSELIN CALVILLO SKYLAR A 04/10 [facility] Outpatient Encounter [id number] Escobar COONEY ODD 04/12 [facility] Outpatient Encounter [id number] 05/04 [facility] OFFICE O/P NEW MOD 45 MIN [id number] Diagnos is: ICD-10- CM M54.50 Low back pain, unspeci fied Joel PARHAM 05/06 [facility] MANUAL THERAPY 1/ [facility] [id number] [id number] Diagnos is: ICD-10- CM M25.511 Pain in right shoulde r Joel PARHAM 05/11 [facility] PSYTX W PT 30 MINUTES [id number] [id number] Diagnos is: ICD-10- CM F43.10 Post-tr aumatic stress disorde r, unspeci fied Margaret GALLEGOS 05/11 [facility] Outpatient Encounter [id number] 06/11 [facility] JOSEPH JAUREGUI [facility] CASE MANAGEMENT [id number] Diagnos is: ICD-10- CM Z65.9 Problem related to unspeci fied psychos ocial circums tanEAMON Dale P 07/30 JOSEPH JAUREGUI [facility] PH1 ASSMT&MGMT NQHP 11-20 [id number] [id number] Diagnos is: ICD-10- CM Z71.89 Other specifi ed eligibility counselor ing MICHAEL BRIGHT 08/[address] [facility] Outpatient Encounter [id number] MICHAEL BRIGHT 08/[address] [facility] Outpatient Encounter [id number] [id number] 08/17 [facility] OFFICE O/P NEW MOD 45 MIN [id number] [id number] Diagnos is: ICD-10- CM F41.9 Anxiety disorde r, unspeci fied JACQUELINE HAIR 08/18 [facility] Outpatient Encounter [id number] [id number] 08/[address] [facility] Outpatient Encounter [id number] [id number] YOSELIN ALCALA 08/[address] [facility] Outpatient Encounter [id number] [id number] VAZQUEZ BATRES 08/[address] [facility] POS AIRWAY PRESSURE CPAP [id number] [id number] Diagnos is: ICD-10- CM G47.33 Obstruc tive sleep apnea (adult) (pediat megan) BRAVO MCGOVERN MD 08/[address] [facility] Outpatient Encounter [id number] [id number] VAZQUEZ BATRES 09/02 [facility] [id number] [id number] YOSELIN CALVILLO A 09/[address] [facility] PH1 ASSMT&MGMT NQHP 11-20 [id number] [id number] Diagnos is: ICD-10- CM Z71.89 Other specifi ed eligibility counselor MICHAEL Gomez 09/[address] [facility] Outpatient Encounter [id number] [id number] 09/[address] [facility] Outpatient Encounter [id number] [id number] 09/[address] [facility] Outpatient Encounter [id number] [id number] YOSELIN CALVILLO A 09/[address] [facility] Outpatient Encounter [id number] [id number] 09/[address] [facility] PH1 ASSMT&MGMT NQHP 5-10 [id number] [id number] Diagnos is: ICD-10- CM G47.33 Obstruc tive sleep apnea (adult) (pediat megan) TIFFANIE WATERMAN 09/[address] [facility] Outpatient Encounter [id number] [id number] 09/[address] [facility] Outpatient Encounter [id number] [id number] YOSELIN ALCALA 09/[address] [facility] Outpatient Encounter [id number] [id number] 09/30 [facility] Outpatient Encounter [id number] [id number] 10/08 [facility] Outpatient Encounter [id number] [id number] 11/04 [facility] SYNCH AUDIO-VIDE O EST MOD 30 [id number] [id number] Diagnos is: ICD-10- CM F43.10 Post-tr aumatic stress disorde r, unspeci fied JACQUELINE HAIR 11/17 [facility] Outpatient Encounter [id number] YOSELIN CALVILLO 01/[address] [facility] Outpatient Encounter [id number] [id number] 01/10 [facility] Procedures Combined list of: 1) Procedures from Department of Veterans Affairs facilities going back up to thelast 18 months, not all [place] non-surgical procedures are included; 2) All procedures from the Department of Defense facilities. Procedure Procedure Type Code Date Perfomer Comments [facility] e IMMUNIZATION ADMINISTRATION (INCLUDES PERCUTANEOUS, INTRADERMAL, SUBCUTANEOUS, OR INTRAMUSCULAR INJECTIONS); 1 VACCINE (SINGLE OR COMBINATION VACCINE/TOXOID) 12/06/19 05 DoD NONINVASIVE EAR OR PULSE OXIMETRY FOR OXYGEN SATURATION; SINGLE DETERMINATION 01/18/20 04 DoD PURE TONE AUDIOMETRY (THRESHOLD); AIR ONLY 01/13/20 04 DoD FITTING OF SPECTACLES, EXCEPT FOR APHAKIA; MONOFOCAL 01/11/20 04 DoD THERAPEUTIC PROCEDURE, 1 OR MORE AREAS, EACH 15 MINUTES; THERAPEUTIC EXERCISES TO DEVELOP STRENGTH AND ENDURANCE, RANGE OF MOTION AND FLEXIBILITY 10/23/19 05 DoD ARTHROCENTESIS, ASPIRATION AND/OR INJECTION, MAJOR JOINT OR BURSA (EG, SHOULDER, HIP, KNEE, SUBACROMIAL BURSA); WITHOUT ULTRASOUND GUIDANCE 10/18/19 05 DoD INJECTION, MEPERIDINE HCL, PER 100 MG 08/31/19 05 DoD APPLICATION OF A MODALITY TO 1 OR MORE AREAS; HOT OR COLD PACKS 08/28/19 05 DoD THERAPEUTIC PROCEDURE, 1 OR MORE AREAS, EACH 15 MINUTES; GAIT TRAINING (INCLUDES STAIR CLIMBING) 08/28/19 05 DoD APPLICATION OF A MODALITY TO 1 OR MORE AREAS; HOT OR COLD PACKS 08/27/19 05 DoD SUPPLY OF SPECTACLES, EXCEPT PROSTHESIS FOR APHAKIA AND LOW VISION AIDS 08/24/19 05 DoD PHYSICAL THERAPY EVALUATION 08/23/19 05 DoD THERAPEUTIC PROCEDURE, 1 OR MORE AREAS, EACH 15 MINUTES; GAIT TRAINING (INCLUDES STAIR CLIMBING) 07/25/19 05 DoD FITTING OF SPECTACLES, EXCEPT FOR APHAKIA; MONOFOCAL 06/22/20 04 DoD SCANNING COMPUTERIZED OPHTHALMIC DIAGNOSTIC IMAGING, POSTERIOR SEGMENT, (EG, SCANNING LASER) WITH INTERPRETATION AND REPORT, UNILATERAL 10/04/19 09 [facility] OPHTHALMOLOGICAL SERVICES: MEDICAL EXAMINATION AND EVALUATION, WITH INITIATION OR CONTINUATION OF DIAGNOSTIC AND TREATMENT PROGRAM; INTERMEDIATE, ESTABLISHED PATIENT 03/25/20 08 [facility] VISUAL FIELD EXAM,UNILAT/BI,INTER P&REP;EXT EXM(EG,GOLDMANN VIS FLD,AT LEAST 3 ISOP PLOT&STAT DET W/IN LAURA 30DEG/QUANT,AUTO THRSH ERIKA,OCT G-1,32/42,HUMP VIS FLD ANAL FULL THRSH 30-2,24-2, OR 30/60-2) 03/23/20 08 [facility] SCREENING TEST, PURE TONE, AIR ONLY 11/05/19 08 [facility] FUNDUS PHOTOGRAPHY WITH INTERPRETATION AND REPORT 02/05/20 07 DoD FITTING OF SPECTACLES, EXCEPT FOR APHAKIA; MONOFOCAL 01/31/20 07 DoD FITTING OF SPECTACLES, EXCEPT FOR APHAKIA; MONOFOCAL 07/26/19 06 DoD AUDITORY EVOKED POTENTIALS FOR EVOKED RESPONSE AUDIOMETRY AND/OR TESTING OF THE CENTRAL NERVOUS SYSTEM; COMPREHENSIVE 03/22/20 05 DoD INJECTION, DIPHENHYDRAMINE HCL, UP TO 50 MG 03/15/20 05 DoD ACOUSTIC REFLEX TESTING; DECAY 03/13/20 05 DoD PURE TONE AUDIOMETRY (THRESHOLD); AIR ONLY 03/07/20 05 DoD INTRAVENOUS INFUSION FOR THERAPY/DIAGNOSIS, ADMINISTERED BY PHYSICIAN OR UNDER DIRECT SUPERVISION OF PHYSICIAN; UP TO ONE HOUR 02/20/20 05 DoD Scanning Computerized Ophthalmic Diagnostic Imaging 10/05/19 09 ZOE SHIPLEY Visual Ferreira Test Extended Examination Visual Ferreira Test Extended Examination [id number] 10/05/19 09 ZOE SHIPLEY Ophthalmological New Patient Start Comprehensive Care Ophthalmological New Patient Start Comprehensive Care 82370 10/05/19 09 ZOE SHIPLEY Ophthalmological Prior Patient Start Intermediate Level Care Ophthalmological Prior Patient Start Intermediate Level Care 16045 03/29/20 08 ROSS SAMANO Visual Ferreira Test Extended Examination Visual Ferreira Test Extended Examination 84350 03/25/20 08 ROSS SAMANO [facility] Services Fitting Monofocals (Not For Aphakia) [facility] Fitting Monofocals (Not For Aphakia) 29363 03/25/20 08 ROSS SAMANO Ophthalmological Prior Patient Start Comprehensive Care Ophthalmological Prior Patient Start Comprehensive Care 06853 03/25/20 08 ROSS SAMANO Determination Of Refractive State Determination Of Refractive State 59392 03/25/20 08 ROSS SAMANO Audiogram (Screening) Audiogram (Screening) 55072 11/05/19 08 LILIANA BRIAN [id number] [facility] Fundus Photography Fundus Photography 64713 07 WYATT GARCIA Visual Ferreira Test Extended Examination Visual Ferreira Test Extended Examination 42506 02/07/20 07 WYATT GARCIA Ophthalmological Prior Patient Start Intermediate Level Care Ophthalmological Prior Patient Start Intermediate Level Care 83250 02/07/20 07 WYATT GARCIA [employer] [facility] Fitting Monofocals (Not For Aphakia) [facility] Fitting Monofocals (Not For Aphakia) 68511 02/06/20 07 WYATT GARCIA Determination Of Refractive State Determination Of Refractive State 55702 02/06/20 07 WYATT GARCIA Ophthalmological Prior Patient Start Comprehensive Care Ophthalmological Prior Patient Start Comprehensive Care 26653 02/06/20 07 WYATT GARCIA Ophthalmological New Patient Start Comprehensive Care Ophthalmological New Patient Start Comprehensive Care 24580 07/26/19 06 WYATT GARCIA Determination Of Refractive State Determination Of Refractive State 53607 07/26/19 06 WYATT GARCIA [facility] Spectacles Services Fitting Monofocals (Not For Aphakia) [facility] Fitting Monofocals (Not For Aphakia) 51509 07/26/19 06 WYATT GARCIA [facility] Exercises A isted Exercises For ROM Exercises Assisted Exercises For ROM 63256 12/25/19 05 MARTITA GABY HAIRSTON [facility] Modalities Cryotherapy Cold Packs Modalities Cryotherapy Cold Packs 02883 12/25/19 05 MARTITA GABY YOVANNY [facility] Modalities Electrical Stimulation Unattended Modalities Electrical Stimulation Unattended 12897 12/25/[address] [facility] GABY YOVANNY [facility] Physical Therapy: ___ Se ion Segments, 15 Minutes Each Physical Therapy: ___ Session Segments, 15 Minutes Each 09967 12/25/19 05 MARTITA, GABYJUDIE HAIRSTON [facility] Hepatitis A And Hepatitis B (Intramuscular Use) Adult Dosage Hepatitis A And Hepatitis B (Intramuscular Use) Adult Dosage 88870 12/12/19 05 ZHOU QUIÑONEZ [facility] Immunization Administration One Vaccine Immunization Administration One Vaccine 27222 12/12/19 05 KHANG ZHOU B [facility] Corticosteroids Injection Intraarticular Left Knee Corticosteroids Injection Intraarticular Left Knee 00694 10/18/19 05 JIN MCDONALD [facility] Modalities Cryotherapy Cold Packs Modalities Cryotherapy Cold Packs 04151 10/12/19 05 MARTITA GABYJUDIE HAIRSTON [facility] Modalities Electrical Stimulation Modalities Electrical Stimulation [address] [facility] [facility] 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 Social History Type Response Date Comment Sourc e Tobacco smoking status NHIS VA-TOBACCO NEVER USED 04/06/2024 [facility] History of tobacco use VA-TOBACCO FORMER USER 04/07/2023 [facility] History of tobacco use VA-TOBACCO QUIT 1 TO < 5 YRS 03/25/2022 [facility] History of tobacco use VA-TOBACCO FORMER USER 04/06/2021 [facility] History of tobacco use VA-TOBACCO NEVER USED 04/07/2020 [facility] This section is an empty social history section. DoD Plan of Care List of future care activities from Department of Veterans Affairs facilities. Additional future care activities may be listed in the Assessment and Plan section. Date/Time Care Activity Care Activity Detail Facili ty 03/03/2025 AMBULATORY - PSYCHIATRY AMBULATORY - PSYC HIATRY [facility]
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
--- OUTSIDE RECORDS SUMMARY | 2025-02-01 07:04 | XMS_ITS ---
Author Name [facility] [facility] [place] [facility] [facility] [place] Address [address] [place] [address] Care Team Providers Care Software Engineer Name Role Phone KHARI COONEY Primary Care [...] PLAN W/HEALTH SAVINGS ACCOUNT AMERE N RUBINA [facility] Jul 14, [id number] [phone] SCOTT WINTER PATIENT ANTHEM [employer] HIGH DEDUCTIBL E HEALTH PLAN W/HEALTH SAVINGS ACCOUNT AMERE N [facility] [facility] Jul 14, [id number] [phone] SCOTT WINTER PATIENT [place]EDU[place] E HEALTH PLAN W/HEALTH SAVINGS ACCOUNT AMERE N RUB[place] [facility] Jul 14, [id number] [phone] SCOTT WINTER PATIENT [place] HEALTH PLAN W/HEALTH SAVINGS ACCOUNT AMERE N [place]UB[place] [facility] Jul 14, [id number] [phone] SCOTT WINTER PATIENT [place] PREFERRED PROVIDER ORGANIZAT ION (PPO) AMERE N CORPO RATIO N Jul 14, 2019 [id number] [phone] SCOTT WINTER PATIENT [employer] ([id number])RX PRESCRIPT ION AMERE N RUBINA [facility] Jul 14, 2022 [id number] [phone] SCOTT WINTER PATIENT [employer] ([id number]) PRESCRIPT ION AMERE N RUBINA Jul 14, 2019 [id number] [phone] SCOTT WINTER PATIENT Selected Encounter This section includes the information on record at [place] for the Encounter. Date/Time Encounter Type Encounter Description Reason Provider Source November 17, 2024 10:00 AM SYNCH AUDIO-VIDEO EST MOD [facility] - IND ICD-10-CM F43.10 Post-traumatic stress disorder, unspecified CHAKKAMPARAMBI L,JACQUELINE IHE Encounter Template Text not used by [place] Assessments - Encounter Diagnoses This section includes the primary and secondary diagnoses documented for the Encounter. Date/Time Primary/Secondary Diagnosis Diagnosis Name Provider Source November 17, 2024 05:08 PM PRIMARY Post-traumatic stress disorder, unspecified CHAKKAMPARAMBI L,[facility] November 17, 2024 05:08 PM SECONDARY Anxiety disorder, unspecified CHAKKAMPARAMBI L,[facility] November 17, 2024 05:08 PM SECONDARY Depression, unspecified CHAKKAMPARAMBI L,[facility] November 17, 2024 05:08 PM SECONDARY Insomnia, unspecified CHAKKAMPARAMBI L,[facility] Plan of Treatment: Future Appointments (+ 6 months) and Future Tests (+/- 45 days) The Plan of Treatment section includes future care activities for the patient from all [place] [facility] This section includes future appointments and future orders which are active, pending or scheduled. Future Appointments This section includes appointments that were scheduled to occur 6 months from the date of the Encounter, up to a maximum of 20 appointments. The data comes from all [place] treatment [facility]. Appointment Date/Time Appointment Type Appointme nt Facility Name Mar 03, 2025 03:00 PM AMBULATORY - PSYCHIATRY [facility] Apr 06, 2025 02:30 PM AMBULATORY - MEDICINE [facility] Encounter Notes: All associated encounter notes This section contains the clinical notes associated to the Encounter. Date/Time Encounter Note(s) Provider Source November 17, 2024 10:05 AM PSYCHIATRY NOTE: LOCAL TITLE: PSYCHIATRY STL STANDARD TITLE: PSYCHIATRY NOTE DATE OF NOTE: NOVEMBER 17, 2024@10:05 ENTRY DATE: NOVEMBER 17, 2024@10:05:41 AUTHOR: KENDALL BARRETT COSIGNER: JACQUELINE CASILLAS URGENCY: STATUS: COMPLETED PSYCHIATRY STL Has ADDENDA Psychiatry Progress Note NOVEMBER 17, 2024 Name: SCOTT WINTER Age: 39 Race: WHITE Sex: MALE Service connection: Service Connected: 100% Rated Disabilities: 2ND DEGREE MAKI (0% SC) LIMITED FLEXION OF THIGH (0% SC) LIMITED EXTENSION OF THIGH (0% SC) LUMBOSACRAL OR CERVICAL STRAIN (40% SC) LUMBOSACRAL OR CERVICAL STRAIN (30% SC) PARALYSIS OF ALL RADICULAR NERVE GROUPS (40% SC) THIGH CONDITION (10% SC) PARALYSIS OF SCIATIC NERVE (20% SC) PARALYSIS OF ALL RADICULAR NERVE GROUPS (30% SC) PARALYSIS OF SCIATIC NERVE (20% SC) POST-TRAUMATIC STRESS DISORDER (70% SC) LOSS OF FIELD OF VISION (10% SC) SLEEP APNEA SYNDROMES (50% SC) ECZEMA (0% SC) MIGRAINE HEADACHES (30% SC) TINNITUS (10% SC) SUPERFICIAL SCARS (10% SC) TENDON INFLAMMATION (10% SC) LIMITED MOTION OF ARM (30% SC) ALLERGIES: Patient has answered NKA MEDICATIONS: Active Outpatient Medications (including Supplies): Active Outpatient Medications Status 1) BUPROPION HCL 150MG 24HR SA TAB TAKE ONE TABLET BY MOUTH ACTIVE ONCE A DAY SWALLOW WHOLE - DO NOT CRUSH OR CHEW. Indication: FOR DEPRESSION 2) DICLOFENAC NA 1% TOP GEL APPLY 2 GM TO AFFECTED AREA(S) FOUR ACTIVE TIMES A DAY DO NOT EXCEED MORE THAN 16 GRAMS DAILY TO ANY LOWER EXTREMITY JOINT. NOT MORE THAN 8 GRAMS DAILY TO ANY UPPER EXTREMITY JOINT. MAX 32GM/DAY OVER ALL JOINTS. (MEASURE DOSE WITH RULER ATTACHED INSIDE BOX) Indication: FOR PAIN 3) KETOCONAZOLE 2% SHAMPOO USE SHAMPOO TO AFFECTED AREA(S) ACTIVE EVERY FIVE DAYS (EXTERNAL USE ONLY) (SHAKE WELL) Indication: FOR SEBORRHEIC DERMATITIS 4) LAMOTRIGINE 200MG TAB TAKE ONE-HALF TABLET BY MOUTH TWICE A ACTIVE DAY Indication: ANXIETY/ANGER 5) LORATADINE 10MG TAB TAKE ONE TABLET BY MOUTH ONCE A DAY ON ACTIVE EMPTY STOMACH Indication: FOR ALLERGIC RHINITIS 6) PROPRANOLOL HCL 60MG SA CAP TAKE ONE CAPSULE BY MOUTH ONCE A ACTIVE DAY Indication: ANXIETY 7) SALONPAS PAIN RELIEF PATCH LARGE APPLY 1 PATCH TO SKIN SITE ACTIVE ONCE A DAY (EXTERNAL USE ONLY) Indication: FOR PAIN 8) SELENIUM SULFIDE 1% SHAMPOO USE SMALL AMOUNT TO AFFECTED ACTIVE AREA(S) ONCE A DAY Indication: FOR DANDRUFF No medications found. Reviewed, discussed and updated the current medication list with the [place]. 1) Anxiety (SNOMED CT [id number]) 2) Posttraumatic stress disorder 3) Tinnitus 4) History of sleeve gastrectomy 5) Pain of Right Knee (SCT [id number]) 6) Pain of right shoulder joint 7) Family history of cancer of colon 8) Depression 9) Obesity 10) Seborrheic dermatitis 11) Exposure to potentially hazardous substance 12) Chronic low back pain 13) Obstructive sleep apnea Chief Complaint: ok HPI: --- SCOTT WINTER is a 39 year old WHITE MALE presenting for psychiatric follow up appointment. BRIEF SUMMARY: Past psychiatric history of anxiety, depression, and PTSD. Previously had psychiatrist and therapist through [facility] in [place]. Community PCP who had been starting and refilling his psychotropic medications. He now wants to be established through our clinic here. Did [facility] in Jul 2024. Established here stable on regimen of lamotrigine, bupropion, and propranolol. Finds that lamotrigine helps for stabilizing mood and making him feel less anxious. First seen by this provider: 08/18/24 C-SSRS: 08/18/24 Patient was last seen on: 08/18/24 Diagnosis: PTSD chronic Anxiety unspecified Depression unspecified Recommendations: -Bupropion XL 150mg daily -Lamotrigine 100mg BID, was recently increaased by his community PCP -Propranolol SA 60mg daily for anxiety -Discussed about therapy options, he just completed IOP and would like to hold off on starting anything else for now. INTERVAL HISTORY: Today patient reports doing ok. He is still struggling with sleeping which is affecting other things. Has been taking his BiPAP off in his sleep. Some nights can wear it all night long, sometimes can only wear it for an hour. Nightmares and sleep walking happening 5 out of 7 nights of the week. Overall mood has been pretty good but he does have some off days where he does not feel well. He does contribute a lot of it to sleep. In late September he had the stellate ganglion block procedure and it wasn't as effective as it has been in the past. Denies panic attacks. Has had some pretty severe anxiety days. Would like to stabilize sleep before making other adjustments with medications. Denies SI, HI, AH, VH. Sleep: going to bed 9pm, wakes up 3:45am for work. sleeping 4-5 hours at most Appetite: overeating a little Medication side effects: denies PAST MEDICATION HISTORY: Sertraline (sexual side effects, discontinued in 2014) Hydroxyzine (worsened nightmares) Prazosin (more vivid dreams?) Bupropion has been up to 300 mg daily SOCIAL HISTORY: Born in [place], [place] and grew up in [place], [place]. Has 1 full brother and 1 half brother and 1 half sister. At home was mostly older brother, younger brother, and both parents growing up. Has a high school diploma. Was in [employer] from 2003 - 2008. Has been for 20 years, has 3 kids ages 13, 17, 19 who all live at home. 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 Denies legal history. SUBSTANCE USE HISTORY: Only has history of social alcohol use. Used chewing tobacco in , quit in 2010. History of marijuana use in high school, none currently. Denies illicit substance use. Review of systems: Negative except where noted above. PHYSICAL EXAM: Measurement DT TEMP PULSE RESP BP HT WT F(C) IN(CM) LB(KG)[BMI] ---- ----- ---- -- ------ 04/06/2024 14:38 98.0(36.7) 60 20 112/71 241(109.3)[35*] 04/07/2023 13:19 98.0(36.7) 70 20 110/70 234(106.1)[34*] Measurement DT CVP POx CG CMH20(MMHG) (L/MIN)(%) IN(CM) ------ 04/06/2024 14:38 97 04/07/2023 13:19 96 Measurement DT Pain ---- 04/06/2024 14:38 3 04/07/2023 13:19 0 Measurement DT WEIGHT LB(KG)[BMI] 04/06/2024 14:38 241(109.32)[35*] 04/07/2023 13:19 234(106.14)[34*] Resp: Normal Effort Extremities: unable to assess via video Gait and station: unable to assess via video MENTAL STATUS EXAM: Appearance: appropriately groomed and dressed, appears stated age Behavior towards examiner: cooperative Eye contact: good via video Speech: normal rate, rhythm, tone, volume, prosody, receptive/expressive language intact Psychomotor: unable to assess via video Mood: ok Affect:congruent, appropriate Thought Process: linear, logical, goal directed Thought Content: denies suicidal/homicidal ideation, did not voice delusions Perception: denied auditory/visual hallucinations, was not observed responding to internal stimuli Orientation: alert and oriented to person, place, time and situation Concentration/attention: attends interview appropriately Memory: not formally assessed but appears grossly intact per ability to answer assessment questions Fund of knowledge: average Insight: fair Judgement: fair LAB RESULTS: Complete Blood Count WBC 8.2 10*3/uL 04/12/2024 12:40 RBC 4.76 [...] 12:40 BASOPHILS, ABSOLUTE 0.05 10*3/uL 04/12/2024 12:40 Comprehensive Metabolic Panel SODIUM 141 mEq/L 04/12/2024 12:40 POTASSIUM 4.8 mEq/L 04/12/2024 12:40 CHLORIDE 105 mEq/L 04/12/2024 12:40 UREA NITROGEN 18.5 mg/dL 04/12/2024 12:40 CREATININE 1.02 mg/dL 04/12/2024 12:40 CALCIUM 9.6 mg/dL 04/12/2024 12:40 PROTEIN 7.5 g/dL 04/12/2024 12:40 ALBUMIN 4.5 g/dL 04/12/2024 12:40 ALKALINE PHOSPHATASE 79 U/L 04/12/2024 12:40 ALT/SGPT 14 U/L 04/12/2024 12:40 AST/SGOT 17 U/L 04/12/2024 12:40 TOTAL BILIRUBIN 0.4 mg/dL 04/12/2024 12:40 CARBON DIOXIDE 26 mEq/L 04/12/2024 12:40 GLUCOSE 94 mg/dL 04/12/2024 12:40 EGFR (CKD-EPI 2020) 96.5 04/12/2024 12:40 Lipid Panel TRIGLYCERIDE 246 H mg/dL 04/12/2024 12:40 CHOLESTEROL 208 H mg/dL 04/12/2024 12:40 HDL(New) 53 mg/dL 04/12/2024 12:40 CALCULATED LDL 106 mg/dL 04/12/2024 12:40 Other pertinent labs HgbA1c: HGA1C 5.3 % 04/12/2024 12:40 TSH: TSH 1.183 uIU/mL 04/12/2024 12:40 B12: No B12 EO data found Folate: No FOLATE ([facility]);FOLATE (PB);FOLATE (DC 04-20);FOLATE (DC 04/20) data found Vitamin D:VITAMIN D, 25-HYDROXY 42.6 ng/mL 04/12/2024 12:40 Ammonia: No data available for: AMMONIA ([facility]) CPK: ____ RPR: ____ HIV: No HIV Antibody ([facility]);HIV COMBO ([facility]) data found HCV: HEP C Ab HCV Ab ([facility]) Nonreactive S/CO 04/07/2023 14:10 Dilantin: ____ Tegretol: No CARBAMAZEPINE EO data found Valproate: No data available for: VALPROIC ACID ([facility]) Clozapine: Lamotrigine: SLT - Lab Tests Selected No data available for: LAMOTRIGINE Urinalysis No URINALYSIS EO data found Urine Drug Screen No data available EKG: No data available for: EKG CONSULT STL EKG CONSULTS PB EKG RESULTS [place] DIAGNOSIS: --------- PTSD chronic Anxiety unspecified Depression unspecified ASSESSMENT/PLAN: Mr. Winter is a 39 year old , domiciled, employed male with past psychiatric history of anxiety, depression, and PTSD who presents for a follow up appointment. He reports continued difficulty with sleep (continues to work with respiratory therapist on BiPAP) and resulting low mood and increase in anxiety on days where sleep has been difficult. He is interested in starting a medication to address sleep and was agreeable to start trazodone. At the next visit may consider adjusting mood medications if low mood/anxiety persist. He did not appear acutely depressed, manic, or psychotic on interview today. - Start trazodone 25 mg qhs PRN, may increase to 50-100mg nightly, however reach out to the clinic to let us know - Bupropion XL 150mg daily - Lamotrigine 100mg BID - Propranolol SA 60mg daily for anxiety We discussed alternatives to treatment, including no treatment, as well as risks, benefits, side effects. The patient understood and consented to treatment provided. Patient aware to call clinic or Emergency Room as appropriate if symptoms get worse or if patient experiences side effects from medications. Time spent: 30 minutes SAFETY RISK ASSESSMENT: risk factors: male gender, trauma history, history of self harm protective factors: denies suicidal thoughts, no prior attempts, living with others, responsibility for children/family, , employed, future oriented, help seeking, connected with providers, adherent with medications acute risk: low chronic risk: low [place] is currently stable for outpatient care. RTC: 3 months INSTRUCTIONS GIVEN TO PATIENT/FAMILY: * Report medication side effects promptly * No alcohol/illicit drug use with medication * Needs to be cautious with driving/use of machinery * Avoid night-time driving * Follow up with Primary Care Provider * If symptoms get worse, call clinic or Emergency Room as appropriate Template for VVC: Consent: [place] verbally consents to a clinical video telehealth follow-up appointment. Address: [address] [place] [address] [place] [address] Phone number: Survey: patient alone Lock: The virtual conference room was locked. EMERGENCY PLAN In the event of an emergency, the [place] or family will call emergency services, if capable. Teleprovider will remain in the virtual medical room until emergency response arrives and handoff to emergency services is complete. If [place] is unable to make emergency call, Teleprovider is to call the national E911 service at [phone] and ask to be connected to emergency services for the 's location. Crisis Hotline: 289.608.4793 [facility] [employer] [employer] Help Desk ([facility]): [phone] or [phone] /angella Barrett M.D. Resident Physician, PGY-2 [facility] Signed: 11/17/2024 11:34 /angella CASILLAS Staff Psychiat[facility]CR[facility] Cosigned: 11/17/2024 17:08 11/17/2024 ADDENDUM STATUS: COMPLETED I have personally reviewed the notes and discussed the patient with the resident, Dr. Barrett, whom I supervised during this visit. I agree with the plan and assessment as outlined by the resident. I have also personally seen and evaluated the patient. Mr. Winter reports trying another episode of the stellate ganglion block through [place], but it was not as helpful as in the past. His biggest concern is his insomnia which is affecting his daily activities. He continues to have nightmares and sleepwalking. He is also working on his BiPAP machine trying to find the right accessory. We discussed about trying trazodone to help her sleep as he has never tried it in the past. Diagnosis: PTSD chronic Anxiety unspecified Depression unspecified Insomnia unspecified Plan: -Bupropion XL 150mg daily -Lamotrigine 100mg BID -Propranolol SA 60mg daily for anxiety -Trazodone: Start taking 25-50 mg at bedtime as needed for sleep, will reach out to us in case the dose needs to be increased. RTC: in 3 months, prefers VVC Detailed history and findings are noted by the resident. /angella CASILLAS Staff Psychiatrist[facility]ICRUZ [facility] Signed: 11/20/2024 14:32 KENDALL BARRETT [facility]
--- OUTSIDE RECORDS SUMMARY | 2025-02-01 07:05 | XMS_ITS ---
Author Organization Unknown Address [id number] [place] [address] [phone] Phone Care Team Providers Care It Security Consulting Director Name Role Phone MANOLO DOW Attending Unavailable JEFFERSON PANDA Primary Unavailable Immunization Immunization Date Status Additional Notes [...] 50 mcg/0.25mL dose 09/08/2020 Completed 207 CVX Social History Type Status Start Date End Date Code Code Syst em Smoking History Never smoker (Never Smoked) 031592290 SNOMED CT Smoking History Unknown if ever smoked [id number] Sex Male Hospital Discharge Instructions Should you have any questions prior to discharge, please contact a member of your healthcare team. If you have left the hospital and have any questions, please contact your primary care physician. Reason For Referral No Data Found Plan of Treatment MRI UE Joint WO Contrast (17938) 2021 Split Night, CPAP/BIPAP/ASV (83355) 08/2023 Encounters Encounter Diagnosis Start Date Code Code Sys tem Obstructive sleep apnea (adult) (pediatric) 10/14/2023 SNOMED-CT Personal Care Team Section Performer Name Performer Role Active Date Inactive MAUDE Freeman PCP - Primary care physician 2022-06-24 2022-07-09 Alessandro Torres PCP - Primary care physician 2022-07-09 Procedures Notes [facility] 10/18/2023 13:11 Patient name: Alvin Moser Date of service: Referring physician: Maude Torres Indication: for assessment and treatment of sleep apnea History: 38 year old male, body weight 240 Lbs, height 70 inches, BMI 34.4 , has restless sleep, history of PTSD, non restorative sleep, sent for split night sleep study Methods: Overnight polysomnography was performed according to [place] [employer] standards with the recording off EEG, EOG, submental EMG, respiratory effort, nasal and oral airflow, EKG, continuous pulse oximetry, anterior tibialis EMG. The polysomnogram tracing raw and scored data reviewed epoch by epoch in its entirety. Scoring criteria used the current version of [place] [employer] Manual for the scoring of sleep and associated events, apneas are scored when there is a drop in the peak signal excursion by greater than or equal to 90% of pre event baseline for greater than or equal to 10 sec. Hypopnea in adults are scored when the peak signal excursion drop seen by greater than or equal to 30% of pre event baseline for greater than or equal to 10 sec in association with either a greater than or equal to 4% oxygen desaturations or an arousal according to [facility] requirement Apnea-hypopnea index equal to the number of apneas and hypopneas per hour. Positive airway pressure titration performed per protocol Sleep summary: Total time in bed 7 hours, 45 minutes, sleep onset, 5 minutes, SE 78 %, stage 1 of 12%, stage 2 of 71%, stage 3 with 11%, and stage REM of 6%, REM latency 401 minutes Cardiac summary: Average heart rate 55 BPM Movement summary: Total of 5 PLM with index 0.8 / hour, no arousal Respiratory summary: Snoring with obstructive hypopneas noted during diagnostic portion, AHI 18 / hour Started on CPAP per protocol, using full face mask, respironics Dreamwear, medium size, pressure of 7 has hypopneas, raised to 9, due to frequent hypopneas, then CPAP 14 his AHI was 16 / hour, had difficulty with CPAP switched to BiPAP 14/10 with AHI 2, raised to BiPAp 15/11 had central apneas, overall did the best on BiPAP 14/10, saturations above 91%, felt much better Impression: Moderate obstructive sleep apnea hypopnea syndrome AHI 18 / hour Started on CPAP, had difficulty, did the best on BiPAP 14/10 CWP Recommendations: 1. General recommendations to treat sleep apnea-hypopnea syndrome include weight reduction, assessment upper airways and thyroid function testing, education regarding sleep apnea and hypersomnia risks and benefits of treatment, safety specially in terms of driving and working on machineries, and close follow-up. 2. It would reasonable to start BiPAP 14/10 CWP, via bi Flex level 3, Dreamwear, Respironics full face mask, Medium size, close follow up including detailed sleep medicine evaluation, download and face to face evaluation. Clinical correlation is required. Michael Castillo MD FCCP Diplomate, [place] [employer]
[2025-02-03 21:07] LABS: Free Testosterone (Direct) 8.0 pg/mL (8.7-25.1)
== END 2025-02-01 07:00 | disposition home or self-care (01) ==
LOC: CHSLAB 07:02
PROVIDERS: PCP Internal Medicine; Visit Provider Nurse Practitioner Family
DX: E29.1 Testicular hypofunction (principal)
CPT/HCPCS: 84402